=== PATIENT | male | born 1945 | race Caucasian/White ===

== ENCOUNTER 2019-03-17 20:37 | Inpatient (IN) ==
[2019-03-17] MEDS ORDERED: DILTIAZEM 25 MG/5 ML VIAL IV ONE ×2 (20:55→21:04)
[2019-03-17] MEDS ORDERED: ENOXAPARIN 60 MG/0.6 ML SYRINGE ONE (20:55)
[2019-03-17] MEDS ORDERED: ENOXAPARIN 30 MG/0.3 ML SYRINGE ONE (20:56)
[2019-03-17] MEDS ORDERED: ASPIRIN 325 MG TABLET ONE (20:56)
[2019-03-17] MEDS ORDERED: METOPROLOL TARTRATE 5 MG/5 ML VIAL IV ONE (20:56)
[2019-03-17] MEDS ORDERED: ENOXAPARIN 30 MG/0.3 ML SYRINGE IV STA (20:57)
[2019-03-17] MEDS ORDERED: ONDANSETRON 4 MG/2 ML VIAL ONE (20:57)
[2019-03-17] MEDS ORDERED: ENOXAPARIN 100 MG/ML SYRINGE SUBCUT STA (20:57)
[2019-03-17] MEDS ORDERED: MORPHINE 4 MG/1 ML VIAL ONE (20:57)
[2019-03-17] MEDS ORDERED: MORPHINE 4 MG/1 ML VIAL IV STA (20:57)
[2019-03-17] MEDS ORDERED: ASPIRIN 325 MG TABLET PO STA (20:57)
[2019-03-17] MEDS ORDERED: ONDANSETRON 4 MG/2 ML VIAL IV STA (20:57)
[2019-03-17] MEDS ORDERED: NITROGLYCERIN 2% OINT 1 INCH/GM PACK TOP STA (20:57)
[2019-03-17] MEDS ORDERED: METOPROLOL TARTRATE 5 MG/5 ML VIAL IV STA (20:57)
[2019-03-17] MEDS ORDERED: dilTIAZem Drip 125 MG/125 ML PREMIX IV ONE (21:04)
[2019-03-17] MEDS: dilTIAZem Drip 125 MG/125 ML PREMIX IV SCH (21:08)
[2019-03-17] MEDS ORDERED: DILTIAZEM 50 MG/10 ML VIAL IV STA ×2 (21:12)
[2019-03-17] MEDS ORDERED: METOPROLOL TARTRATE 25 MG TABLET ONE (21:26)
[2019-03-17] MEDS ORDERED: METOPROLOL TARTRATE 50 MG TABLET PO STA (21:27)
[2019-03-17] MEDS ORDERED: FUROSEMIDE 20 MG/2 ML VIAL IV STA (21:34)
[2019-03-17 21:35] LABS: Basophils # 0.1 10*3/uL (0.0-0.2); Basophils % 1.1 % (0.0-0.8); Eosinophils # 0.9 10*3/uL (0.0-0.87); Eosinophils % 8.1 % (0.00-10.9); Hematocrit 38.5 VOL% (42.0-52.0); Hemoglobin 11.7 GM/DL (14.0-18.0); Immature Granulocytes % 0.5 %; Immature Granulocytes Absolute 0.05 #; Lymphocytes % 28.5 % (21.2-54.2); Mean Corpuscular HGB Conc 30.4 GM/DL (32-36); Mean Corpuscular Volume 88.9 FL (87-102); Mean Platelet Volume 11.1 FL (9.6-12.0); Monocytes % 10.1 % (1.7-12.7); Neutrophils % 51.7 % (38.7-73.9); Platelet Count 326 T/CUMM (130-400); Red Blood Count 4.33 MC/CUMM (3.8-5.5); Red Cell Distribution Width 15.4 % (9.3-17.3); White Blood Count 10.6 T/CUMM (4-12)
[2019-03-17 21:43] LABS: Apearance,Urine CLEAR (Clear); Bilirubin,Urine Negative (Negative); Blood, Urine Negative (Negative); Glucose,Urine (UA) Negative (Negative); Ketones,Urine Negative (Negative); Mucus,Urine Occasional /LPF (Occasional); Nitrite,Urine Negative (Negative); Protein,Urine Negative; RBC,Urine 1 /HPF (0-4); Squamous Epithelial Cell,Urine Occasional /HPF (0-10); Urine Color Colorless (Yellow); Urine Specific Gravity 1.005 (1.001-1.035); Urine Urobilinogen < 2.0 EU/DL (0.2-1.0); WBC,Urine <1 /HPF (0-6)
[2019-03-17 21:50] LABS: PT Patient Result 10.7 SECS (9.6-12.2)
[2019-03-17 21:58] LABS: Alanine Aminotransferase 22 U/L (16-61); Albumin 4.2 G/DL (3.4-5.0); Alkaline Phosphatase 41 U/L (45-117); Aspartate Amino Transferase 15 U/L (0-37); Bilirubin,Total < 0.39 MG/DL (0.2-1.0); Blood Urea Nitrogen 21 MG/DL (7-18); Estimated Glom Filtration Rate 71 ML/MIN; Glucose 151 MG/DL (74-106); Total Protein 8.1 G/DL (6.4-8.3)
[2019-03-17] MEDS ORDERED: POTASSIUM CHLORIDE 20 MEQ TABLET PO PRN (23:44)
[2019-03-17] MEDS ORDERED: ONDANSETRON 4 MG/2 ML VIAL IV PRN (23:44)
[2019-03-17] MEDS ORDERED: MORPHINE 4 MG/1 ML VIAL IV PRN (23:44)
[2019-03-17] MEDS ORDERED: MAGNESIUM SULF RIDER 2 GM in PREMIX 1 EACH IV PRN (23:44)
[2019-03-17] MEDS ORDERED: GLUCAGON 1 MG VIAL IM PRN (23:44)
[2019-03-17] MEDS ORDERED: MAGNESIUM SULF RIDER 4 GM in PREMIX 1 EACH IV PRN (23:44)
[2019-03-17] MEDS ORDERED: DEXTROSE 50% 25 GM/50 ML VIAL IV PRN (23:44)
[2019-03-17] MEDS ORDERED: SODIUM CHLORIDE 0.9% 1,000 ML IV SCH (23:44)
[2019-03-18] MEDS: INSULIN REGULAR 100 UNIT/ML SUBCUT SCH ×5 (00:06→23:47)
[2019-03-18] MEDS ORDERED: INFLUENZA VIRUS VACCINE 0.5 ML SYRINGE IM ONE (00:18)
[2019-03-18 05:18] LABS: Risk Ratio 6.62; Thyroid Stimulating Hormone 2.6 uIU/ml (0.358-3.74); VLDL CHOLESTEROL 144.6 MG/DL
[2019-03-18] MEDS: PANTOPRAZOLE 40 MG TABLET PO SCH (08:30)
[2019-03-18] MEDS: ENOXAPARIN 80 MG/0.8 ML SYRINGE SUBCUT SCH ×2 (08:31→20:17)
[2019-03-18] MEDS: FENOFIBRATE 145 MG TABLET PO SCH (08:51)
[2019-03-18] MEDS: ASPIRIN EC 81 MG TABLET PO SCH (08:51)
[2019-03-18] MEDS: MAGNESIUM CHLORIDE 64 MG TABLET PO SCH ×2 (08:51→20:17)
[2019-03-18] MEDS: buPROPion XL 150 MG TABLET PO SCH ×2 (08:51→20:17)
[2019-03-18] MEDS: MECLIZINE 25 MG TABLET PO SCH ×3 (08:51→20:17)
[2019-03-18] MEDS ORDERED: METOPROLOL TARTRATE 25 MG TABLET PO SCH (09:00)
[2019-03-18] MEDS ORDERED: PANTOPRAZOLE 40 MG TABLET PO SCH (09:00)
[2019-03-18] MEDS ORDERED: FUROSEMIDE 40 MG/4 ML VIAL IV ONE (10:00)
[2019-03-18] MEDS ORDERED: DIAZEPAM 5 MG TABLET PO ONE (10:00)
[2019-03-18] MEDS ORDERED: diphenhydrAMINE CAP 25 MG CAPSULE PO ONE (10:00)
[2019-03-18] MEDS ORDERED: SODIUM CHLORIDE 0.45% 1,000 ML IV SCH ×2 (11:00→12:00)
[2019-03-18] MEDS: METOPROLOL TARTRATE 50 MG TABLET PO SCH ×2 (11:30→20:17)
[2019-03-18] MEDS ORDERED: HEPARIN/NACL 0.9% 2 UNITS/ML 1,000 ML IV ONE (14:27)
[2019-03-18] MEDS ORDERED: LIDOCAINE 1%/EPI INJ 20 ML VIAL ONE (14:27)
[2019-03-18] MEDS ORDERED: MIDAZOLAM 2 MG/2 ML VIAL ONE (15:01)
[2019-03-18] MEDS ORDERED: fentaNYL 100 MCG/2 ML VIAL ONE (15:02)
[2019-03-18] MEDS ORDERED: AMIODARONE 150 MG/3 ML VIAL ONE ×3 (15:19→15:26)
[2019-03-18] MEDS ORDERED: AMIODARONE INJ 450 MG in DEXTROSE 5% 241 ML IV SCH (15:43)
[2019-03-18] MEDS: ROSUVASTATIN 20 MG TABLET PO SCH (20:17)
[2019-03-18] MEDS ORDERED: SIMVASTATIN 10 MG TABLET PO SCH (21:00)
[2019-03-18] MEDS: AMIODARONE INJ 450 MG in DEXTROSE 5% 241 ML IV SCH (22:09)
[2019-03-18] MEDS: dilTIAZem Drip 125 MG/125 ML PREMIX IV SCH (22:09)
[2019-03-19] MEDS ORDERED: SODIUM CHLORIDE 0.45% 1,000 ML IV SCH (02:00)
[2019-03-19 03:26] LABS: Calcium 9.4 MG/DL (8.5-10.1); Osmolality,Calculated 288.1 MOS/KG (273-304)
[2019-03-19 03:41] LABS: Basophils # 0.1 10*3/uL (0.0-0.2); Basophils % 0.8 % (0.0-0.8); Eosinophils # 0.6 10*3/uL (0.0-0.87); Eosinophils % 5.7 % (0.00-10.9); Immature Granulocytes % 0.5 %; Immature Granulocytes Absolute 0.05 #; Lymphocytes # 2.4 10*3/uL (1.4-4.0); Mean Corpuscular HGB Conc 30.5 GM/DL (32-36); Mean Corpuscular Volume 87.9 FL (87-102); Mean Platelet Volume 11.2 FL (9.6-12.0); Monocytes % 10.2 % (1.7-12.7); Neutrophils % 60.8 % (38.7-73.9); Platelet Count 326 T/CUMM (130-400); Red Blood Count 4.47 MC/CUMM (3.8-5.5); Red Cell Distribution Width 15.3 % (9.3-17.3); White Blood Count 10.9 T/CUMM (4-12)
[2019-03-19 03:46] LABS: Hematocrit 39.3 VOL% (42.0-52.0)
[2019-03-19] MEDS: INSULIN REGULAR 100 UNIT/ML SUBCUT SCH ×4 (05:36→20:29)
[2019-03-19] MEDS: MAGNESIUM CHLORIDE 64 MG TABLET PO SCH ×2 (08:23→20:29)
[2019-03-19] MEDS: ASPIRIN EC 81 MG TABLET PO SCH (08:23)
[2019-03-19] MEDS: ENOXAPARIN 80 MG/0.8 ML SYRINGE SUBCUT SCH ×2 (08:24→20:29)
[2019-03-19] MEDS: METOPROLOL TARTRATE 50 MG TABLET PO SCH (08:24)
[2019-03-19] MEDS: PANTOPRAZOLE 40 MG TABLET PO SCH (08:24)
[2019-03-19] MEDS: MECLIZINE 25 MG TABLET PO SCH ×3 (08:24→20:29)
[2019-03-19] MEDS: buPROPion XL 150 MG TABLET PO SCH ×2 (08:24→20:29)
[2019-03-19] MEDS: FENOFIBRATE 145 MG TABLET PO SCH (08:24)
[2019-03-19] MEDS ORDERED: AMIODARONE 200 MG TABLET PO SCH (09:00)
[2019-03-19] MEDS: METOPROLOL TARTRATE 100 MG TABLET PO SCH ×2 (09:33→20:29)
[2019-03-19] MEDS: AMIODARONE INJ 450 MG in DEXTROSE 5% 241 ML IV SCH (16:05)
[2019-03-19] MEDS: ROSUVASTATIN 20 MG TABLET PO SCH (20:29)
[2019-03-20 05:22] LABS: Basophils # 0.1 10*3/uL (0.0-0.2); Basophils % 0.9 % (0.0-0.8); Eosinophils # 0.7 10*3/uL (0.0-0.87); Eosinophils % 6.9 % (0.00-10.9); Hematocrit 38.6 VOL% (42.0-52.0); Hemoglobin 11.7 GM/DL (14.0-18.0); Immature Granulocytes % 0.5 %; Immature Granulocytes Absolute 0.05 #; Lymphocytes # 2.2 10*3/uL (1.4-4.0); Mean Corpuscular HGB Conc 30.3 GM/DL (32-36); Mean Corpuscular Volume 86.7 FL (87-102); Mean Platelet Volume 11.2 FL (9.6-12.0); Monocytes % 10.9 % (1.7-12.7); Neutrophils % 58.8 % (38.7-73.9); Platelet Count 300 T/CUMM (130-400); Red Blood Count 4.45 MC/CUMM (3.8-5.5); Red Cell Distribution Width 15.3 % (9.3-17.3); White Blood Count 9.9 T/CUMM (4-12)
[2019-03-20 05:53] LABS: Calcium 9.1 MG/DL (8.5-10.1); Osmolality,Calculated 286.4 MOS/KG (273-304)
[2019-03-20] MEDS: SODIUM CHLORIDE 0.9% 1,000 ML IV SCH (07:05)
[2019-03-20] MEDS ORDERED: LIDOCAINE 2% 5 ML VIAL ONE (07:25)
[2019-03-20] MEDS ORDERED: PROPOFOL 200 MG/20 ML VIAL IV ONE (07:25)
[2019-03-20] MEDS: METOPROLOL TARTRATE 100 MG TABLET PO SCH ×2 (08:38→21:04)
[2019-03-20] MEDS: buPROPion XL 150 MG TABLET PO SCH ×2 (08:38→21:04)
[2019-03-20] MEDS: PANTOPRAZOLE 40 MG TABLET PO SCH (08:38)
[2019-03-20] MEDS: FENOFIBRATE 145 MG TABLET PO SCH (08:38)
[2019-03-20] MEDS: ENOXAPARIN 80 MG/0.8 ML SYRINGE SUBCUT SCH ×2 (08:38→21:04)
[2019-03-20] MEDS: ASPIRIN EC 81 MG TABLET PO SCH (08:38)
[2019-03-20] MEDS: MAGNESIUM CHLORIDE 64 MG TABLET PO SCH ×2 (08:38→21:03)
[2019-03-20] MEDS: MECLIZINE 25 MG TABLET PO SCH ×3 (08:38→21:04)
[2019-03-20] MEDS: AMIODARONE 200 MG TABLET PO SCH ×2 (09:10→21:04)
[2019-03-20] MEDS: INSULIN REGULAR 100 UNIT/ML SUBCUT SCH ×4 (09:11→21:03)
[2019-03-20] MEDS: LOSARTAN 25 MG TABLET PO SCH (10:23)
[2019-03-20] MEDS: ROSUVASTATIN 20 MG TABLET PO SCH (21:04)
[2019-03-20] MEDS: ASCORBIC ACID 500 MG TABLET PO SCH (21:04)
[2019-03-21 04:30] LABS: Basophils # 0.1 10*3/uL (0.0-0.2); Basophils % 0.9 % (0.0-0.8); Eosinophils # 0.7 10*3/uL (0.0-0.87); Eosinophils % 8.3 % (0.00-10.9); Hematocrit 33.1 VOL% (42.0-52.0); Immature Granulocytes % 0.5 %; Immature Granulocytes Absolute 0.04 #; Lymphocytes # 2.3 10*3/uL (1.4-4.0); Lymphocytes % 25.9 % (21.2-54.2); Mean Corpuscular HGB Conc 30.2 GM/DL (32-36); Mean Corpuscular Volume 87.6 FL (87-102); Mean Platelet Volume 11.3 FL (9.6-12.0); Monocytes % 12.4 % (1.7-12.7); Platelet Count 283 T/CUMM (130-400); Red Blood Count 3.78 MC/CUMM (3.8-5.5); Red Cell Distribution Width 15.3 % (9.3-17.3); White Blood Count 8.7 T/CUMM (4-12)
[2019-03-21 04:56] LABS: Calcium 8.7 MG/DL (8.5-10.1); Osmolality,Calculated 291.1 MOS/KG (273-304)
[2019-03-21] MEDS: SODIUM CHLORIDE 0.9% 1,000 ML IV SCH (09:43)
[2019-03-21] MEDS: MAGNESIUM CHLORIDE 64 MG TABLET PO SCH ×2 (09:44→21:16)
[2019-03-21] MEDS: buPROPion XL 150 MG TABLET PO SCH ×2 (09:44→21:15)
[2019-03-21] MEDS: ASPIRIN EC 81 MG TABLET PO SCH (09:44)
[2019-03-21] MEDS: PANTOPRAZOLE 40 MG TABLET PO SCH (09:44)
[2019-03-21] MEDS: FENOFIBRATE 145 MG TABLET PO SCH (09:44)
[2019-03-21] MEDS: AMIODARONE 200 MG TABLET PO SCH ×2 (09:44→21:15)
[2019-03-21] MEDS: LOSARTAN 25 MG TABLET PO SCH (09:44)
[2019-03-21] MEDS: ENOXAPARIN 80 MG/0.8 ML SYRINGE SUBCUT SCH ×2 (09:45→21:16)
[2019-03-21] MEDS: ASCORBIC ACID 500 MG TABLET PO SCH ×2 (09:45→21:15)
[2019-03-21] MEDS: METOPROLOL TARTRATE 100 MG TABLET PO SCH ×2 (09:45→21:15)
[2019-03-21] MEDS: MECLIZINE 25 MG TABLET PO SCH ×3 (09:45→21:16)
[2019-03-21] MEDS: INSULIN REGULAR 100 UNIT/ML SUBCUT SCH ×4 (09:48→21:16)
[2019-03-21] MEDS: ROSUVASTATIN 20 MG TABLET PO SCH (21:15)
[2019-03-22 04:37] LABS: Basophils # 0.1 10*3/uL (0.0-0.2); Basophils % 0.8 % (0.0-0.8); Eosinophils # 0.8 10*3/uL (0.0-0.87); Eosinophils % 9.3 % (0.00-10.9); Hemoglobin 9.7 GM/DL (14.0-18.0); Immature Granulocytes % 0.5 %; Immature Granulocytes Absolute 0.04 #; Lymphocytes # 2.1 10*3/uL (1.4-4.0); Lymphocytes % 25.6 % (21.2-54.2); Mean Corpuscular HGB Conc 30.3 GM/DL (32-36); Mean Corpuscular Volume 88.9 FL (87-102); Mean Platelet Volume 11.3 FL (9.6-12.0); Monocytes % 11.7 % (1.7-12.7); Neutrophils % 52.1 % (38.7-73.9); Platelet Count 286 T/CUMM (130-400); Red Cell Distribution Width 15.6 % (9.3-17.3); White Blood Count 8.4 T/CUMM (4-12)
[2019-03-22 04:52] LABS: Calcium 9.4 MG/DL (8.5-10.1); Osmolality,Calculated 297.6 MOS/KG (273-304)
[2019-03-22] MEDS: SODIUM CHLORIDE 0.9% 1,000 ML IV SCH (08:06)
[2019-03-22] MEDS: INSULIN REGULAR 100 UNIT/ML SUBCUT SCH ×4 (08:49→21:34)
[2019-03-22] MEDS: ASPIRIN EC 81 MG TABLET PO SCH (09:21)
[2019-03-22] MEDS: PANTOPRAZOLE 40 MG TABLET PO SCH (09:21)
[2019-03-22] MEDS: AMIODARONE 200 MG TABLET PO SCH ×2 (09:21→21:37)
[2019-03-22] MEDS: FENOFIBRATE 145 MG TABLET PO SCH (09:21)
[2019-03-22] MEDS: MECLIZINE 25 MG TABLET PO SCH ×3 (09:21→21:37)
[2019-03-22] MEDS: MAGNESIUM CHLORIDE 64 MG TABLET PO SCH ×2 (09:21→21:36)
[2019-03-22] MEDS: LOSARTAN 25 MG TABLET PO SCH (09:21)
[2019-03-22] MEDS: buPROPion XL 150 MG TABLET PO SCH ×2 (09:21→21:36)
[2019-03-22] MEDS: ASCORBIC ACID 500 MG TABLET PO SCH ×2 (09:21→21:36)
[2019-03-22] MEDS: METOPROLOL TARTRATE 100 MG TABLET PO SCH ×2 (09:22→21:36)
[2019-03-22] MEDS: ENOXAPARIN 80 MG/0.8 ML SYRINGE SUBCUT SCH ×2 (09:22→21:35)
[2019-03-22] MEDS: cloNIDine 0.1 MG TABLET PO SCH ×2 (14:15→21:37)
[2019-03-22] MEDS: INSULIN GLARGINE SUBCUT SCH (14:52)
[2019-03-22] MEDS: LIXISENATIDE SUBCUT SCH (14:52)
[2019-03-22] MEDS: ROSUVASTATIN 20 MG TABLET PO SCH (21:36)
[2019-03-23 04:58] LABS: Basophils # 0.1 10*3/uL (0.0-0.2); Basophils % 1.2 % (0.0-0.8); Eosinophils # 0.7 10*3/uL (0.0-0.87); Eosinophils % 10.6 % (0.00-10.9); Hematocrit 30.8 VOL% (42.0-52.0); Hemoglobin 9.1 GM/DL (14.0-18.0); Immature Granulocytes % 0.4 %; Immature Granulocytes Absolute 0.03 #; Lymphocytes # 2.2 10*3/uL (1.4-4.0); Lymphocytes % 31.8 % (21.2-54.2); Mean Corpuscular HGB Conc 29.5 GM/DL (32-36); Mean Corpuscular Volume 89.5 FL (87-102); Mean Platelet Volume 11.4 FL (9.6-12.0); Monocytes % 12.8 % (1.7-12.7); Neutrophils % 43.2 % (38.7-73.9); Platelet Count 294 T/CUMM (130-400); Red Blood Count 3.44 MC/CUMM (3.8-5.5); Red Cell Distribution Width 15.7 % (9.3-17.3); White Blood Count 6.9 T/CUMM (4-12)
[2019-03-23 05:22] LABS: Calcium 9.5 MG/DL (8.5-10.1); Osmolality,Calculated 299.4 MOS/KG (273-304)
[2019-03-23] MEDS: cloNIDine 0.1 MG TABLET PO SCH ×3 (05:58→22:21)
[2019-03-23] MEDS ORDERED: DEXTROSE 50% 25 GM/50 ML VIAL IV PRN (07:55)
[2019-03-23] MEDS ORDERED: GLUCAGON 1 MG VIAL IM PRN (07:55)
[2019-03-23] MEDS ORDERED: MAGNESIUM HYDROXIDE SUSP 30 ML UDCUP PO PRN (08:19)
[2019-03-23] MEDS ORDERED: BISACODYL 10 MG SUPP RECTAL PRN (08:20)
[2019-03-23] MEDS: METOPROLOL TARTRATE 100 MG TABLET PO SCH ×2 (08:50→22:21)
[2019-03-23] MEDS: ASCORBIC ACID 500 MG TABLET PO SCH ×2 (08:50→22:21)
[2019-03-23] MEDS: buPROPion XL 150 MG TABLET PO SCH ×2 (08:50→22:21)
[2019-03-23] MEDS: ASPIRIN EC 81 MG TABLET PO SCH (08:50)
[2019-03-23] MEDS: AMIODARONE 200 MG TABLET PO SCH ×2 (08:50→22:22)
[2019-03-23] MEDS: ENOXAPARIN 80 MG/0.8 ML SYRINGE SUBCUT SCH (08:51)
[2019-03-23] MEDS: PANTOPRAZOLE 40 MG TABLET PO SCH (08:51)
[2019-03-23] MEDS: MECLIZINE 25 MG TABLET PO SCH ×3 (08:51→22:21)
[2019-03-23] MEDS: LOSARTAN 25 MG TABLET PO SCH (08:51)
[2019-03-23] MEDS: FENOFIBRATE 145 MG TABLET PO SCH (08:51)
[2019-03-23] MEDS: SODIUM CHLORIDE 0.9% 1,000 ML IV SCH (08:53)
[2019-03-23] MEDS: INSULIN REGULAR 100 UNIT/ML SUBCUT SCH ×4 (08:54→22:22)
[2019-03-23] MEDS: LIXISENATIDE SUBCUT SCH ×2 (09:02→10:45)
[2019-03-23] MEDS: INSULIN GLARGINE SUBCUT SCH ×2 (09:02→10:45)
[2019-03-23] MEDS: MAGNESIUM CHLORIDE 64 MG TABLET PO SCH ×2 (09:02→22:21)
[2019-03-23] MEDS: CHLORHEXIDINE 0.12% ORAL RINSE 60 ML BOTTLE SWISH/SPIT SCH ×2 (09:03→22:23)
[2019-03-23] MEDS: CHLORHEXIDINE 4% SOLN 118 ML BOTTLE TOP SCH ×3 (09:04→21:00)
[2019-03-23] MEDS: ROSUVASTATIN 20 MG TABLET PO SCH (22:21)
[2019-03-24] MEDS ORDERED: VANCOMYCIN 500 MG VIAL ONE (04:22)
[2019-03-24] MEDS ORDERED: VANCOMYCIN 1,000 MG VIAL ONE (04:22)
[2019-03-24] MEDS ORDERED: PAPAVERINE 60 MG/2 ML VIAL ONE (04:22)
[2019-03-24] MEDS ORDERED: DIAZEPAM 5 MG TABLET PO ONE (05:00)
[2019-03-24] MEDS ORDERED: AMINOCAPROIC ACID 5,000 MG/20 ML VIAL ONE (06:00)
[2019-03-24] MEDS ORDERED: MIDAZOLAM 10 MG/2 ML VIAL ONE (06:03)
[2019-03-24] MEDS ORDERED: SUFentanil 250 MCG/5 ML AMP ONE (06:03)
[2019-03-24] MEDS: cloNIDine 0.1 MG TABLET PO SCH ×3 (06:09→22:25)
[2019-03-24] MEDS ORDERED: CEFUROXIME INJ 1,500 MG in SODIUM CHLORIDE 0.9% 100 ML IV ONE (07:00)
[2019-03-24 07:42] LABS: ABG Base Excess -2.9 MMOL/L (-2.5-2.5); ABG Oxygen Saturation 99.9 % (95-100); ABG PCO2 38.9 MM HG (35-48); ABG PH 7.364 (7.35-7.45); ABG TCO2 20.5 MMOL/L (23-27); Glucose Heart Surgery 159 MG/DL (74-106); Hematocrit Heart Surgery 27.8 PERCENT (42-52); Ionized Calcium Arterial 1.23 MMOL/L (1.21-1.46); PCO2 Patient Temp Arterial 38.9 MMHG; PH Patient Temp Arterial 7.364; Patient Temperature 37 CELCIUS; Potassium Heart/CVR 4.4 MMOL/L (3.5-5.1); Sodium Heart/CVR 140 MMOL/L (135-145)
[2019-03-24 08:30] LABS: Apearance,Urine CLEAR (Clear); Bilirubin,Urine Negative (Negative); Blood, Urine Negative (Negative); Glucose,Urine (UA) Negative (Negative); Ketones,Urine Negative (Negative); Mucus,Urine Occasional /LPF (Occasional); Nitrite,Urine Negative (Negative); Protein,Urine 30 MG/DL; RBC,Urine 2 /HPF (0-4); Urine Color Yellow (Yellow); Urine Specific Gravity 1.024 (1.001-1.035); Urine Urobilinogen < 2.0 EU/DL (0.2-1.0); WBC,Urine 2 /HPF (0-6)
[2019-03-24] MEDS ORDERED: CALCIUM CHLORIDE 1,000 MG/10 ML VIAL IV ONE (09:12)
[2019-03-24] MEDS ORDERED: PHENYLEPHRINE 1 MG/10 ML SYRINGE IV ONE (09:13)
[2019-03-24] MEDS ORDERED: PHENYLEPHRINE DRIP 20 MG/250 ML PREMIX IV ONE (09:13)
[2019-03-24] MEDS ORDERED: VECURONIUM 10 MG VIAL IV ONE (09:13)
[2019-03-24] MEDS ORDERED: HEPARIN/NACL 0.9% 2 UNITS/ML 500 ML IV ONE (09:13)
[2019-03-24 09:20] LABS: Hematocrit Heart Surgery 19.1 PERCENT (42-52); Hemoglobin Heart Surgery 6.1 G/DL (14.0-18.0); PCO2 Patient Temp Venous 35.9 MM HG; PH Patient Temp Venous 7.399; PO2 Patient Temp Venous 37.6 MM HG; Potassium Heart/CVR 5.1 MMOL/L (3.5-5.1); VBG Base Excess -2.2 MEQ/L (0-4); VBG HCO3 22.4 MEQ/L (24-28); VBG Oxygen Saturation 77.4 %; VBG PCO2 39.5 MMHG (41-51); VBG PH 7.37; VBG PO2 43.2 MMHG (17-40)
[2019-03-24 09:50] LABS: Hematocrit Heart Surgery 21.7 PERCENT (42-52); Hemoglobin Heart Surgery 6.9 G/DL (14.0-18.0); PCO2 Patient Temp Venous 31.3 MM HG; PH Patient Temp Venous 7.49; PO2 Patient Temp Venous 37.2 MM HG; Potassium Heart/CVR 5.2 MMOL/L (3.5-5.1); VBG Base Excess 0.9 MEQ/L (0-4); VBG HCO3 25.1 MEQ/L (24-28); VBG Oxygen Saturation 84.8 %; VBG PCO2 36.2 MMHG (41-51); VBG PH 7.445; VBG PO2 45.7 MMHG (17-40)
[2019-03-24 10:17] LABS: Hematocrit Heart Surgery 22.4 PERCENT (42-52); Hemoglobin Heart Surgery 7.2 G/DL (14.0-18.0); PCO2 Patient Temp Venous 35.6 MM HG; PH Patient Temp Venous 7.438; PO2 Patient Temp Venous 36.3 MM HG; Potassium Heart/CVR 5.3 MMOL/L (3.5-5.1); VBG Base Excess 0.1 MEQ/L (0-4); VBG HCO3 24.2 MEQ/L (24-28); VBG Oxygen Saturation 71.4 %; VBG PCO2 35.6 MMHG (41-51); VBG PH 7.438; VBG PO2 36.3 MMHG (17-40)
[2019-03-24 11:05] LABS: ABG Base Excess -1.8 MMOL/L (-2.5-2.5); ABG HCO3 22.9 MMOL/L (20-26); ABG Oxygen Saturation 99.9 % (95-100); ABG PCO2 36.2 MM HG (35-48); ABG PH 7.403 (7.35-7.45); ABG TCO2 21.2 MMOL/L (23-27); Glucose Heart Surgery 270 MG/DL (74-106); Hematocrit Heart Surgery 23.7 PERCENT (42-52); Hemoglobin Heart Surgery 7.6 G/DL (14.0-18.0); Ionized Calcium Arterial 1.24 MMOL/L (1.21-1.46); PCO2 Patient Temp Arterial 36.2 MMHG; PH Patient Temp Arterial 7.403; Patient Temperature 37 CELCIUS; Potassium Heart/CVR 4.5 MMOL/L (3.5-5.1); Sodium Heart/CVR 135 MMOL/L (135-145)
[2019-03-24] MEDS ORDERED: LIDOCAINE 2% 5 ML VIAL ONE ×2 (11:06→12:54)
[2019-03-24] MEDS ORDERED: MANNITOL 100 GM/500 ML BAG IV ONE (11:06)
[2019-03-24] MEDS ORDERED: MAGNESIUM SULFATE 5 GM/10 ML VIAL IV ONE (11:07)
[2019-03-24] MEDS ORDERED: SODIUM BICARBONATE 50 MEQ/50 ML VIAL IV ONE (11:07)
[2019-03-24] MEDS ORDERED: PROTAMINE SULFATE 250 MG/25 ML VIAL IV ONE (11:07)
[2019-03-24] MEDS ORDERED: HEPARIN 10,000 UNIT/10 ML VIAL ONE (11:07)
[2019-03-24] MEDS ORDERED: ALBUMIN 25% 25 GM/100 ML VIAL IV ONE (11:07)
[2019-03-24] MEDS ORDERED: DEXTROSE 5% KCL 20 MEQ 20 MEQ/1,000 ML BAG IV ONE (11:07)
[2019-03-24] MEDS ORDERED: FUROSEMIDE 20 MG/2 ML VIAL ONE (11:07)
[2019-03-24] MEDS ORDERED: PHENYLEPHRINE DRIP 40 MG/250 ML PREMIX IV PRN (12:12)
[2019-03-24] MEDS ORDERED: INSULIN REGULAR 100 UNIT/ML IV PRN (12:12)
[2019-03-24] MEDS ORDERED: INSULIN REGULAR DRIP 100 ML IV SCH (12:12)
[2019-03-24] MEDS ORDERED: CALCIUM CHLORIDE 1,000 MG/10 ML SYRINGE IV PRN (12:12)
[2019-03-24] MEDS ORDERED: ALBUMIN 5% 12.5 GM in PREMIX 1 EACH IV PRN (12:12)
[2019-03-24] MEDS ORDERED: MORPHINE 4 MG/1 ML VIAL IV PRN (12:12)
[2019-03-24] MEDS ORDERED: LACTATED RINGERS 250 ML IV PRN (12:12)
[2019-03-24] MEDS ORDERED: DEXTROSE 50% 25 GM/50 ML VIAL IV PRN ×2 (12:12)
[2019-03-24] MEDS ORDERED: MAGNESIUM SULF RIDER 2 GM in PREMIX 1 EACH IV PRN (12:12)
[2019-03-24] MEDS ORDERED: VECURONIUM 10 MG VIAL IV PRN ×2 (12:12)
[2019-03-24] MEDS ORDERED: SODIUM CHLORIDE 0.45% 1,000 ML IV SCH ×2 (12:12)
[2019-03-24] MEDS ORDERED: NITROPRUSSIDE 100 MG in DEXTROSE 5% 250 ML IV PRN (12:12)
[2019-03-24] MEDS ORDERED: ACETAMINOPHEN 650 MG SUPP RECTAL PRN (12:12)
[2019-03-24] MEDS ORDERED: INSULIN REGULAR 100 UNIT/ML IV ONE (12:12)
[2019-03-24] MEDS ORDERED: MORPHINE 10 MG/1 ML VIAL IV PRN (12:12)
[2019-03-24] MEDS ORDERED: MAGNESIUM SULF RIDER 4 GM in PREMIX 1 EACH IV PRN (12:12)
[2019-03-24] MEDS ORDERED: MIDAZOLAM 2 MG/2 ML VIAL IV PRN (12:12)
[2019-03-24] MEDS ORDERED: ONDANSETRON 4 MG/2 ML VIAL IV PRN (12:12)
[2019-03-24] MEDS ORDERED: PROTAMINE SULFATE 50 MG/5 ML VIAL IV ONE (12:15)
[2019-03-24 12:22] LABS: ABG Base Excess -1.3 MMOL/L (-2.5-2.5); ABG HCO3 23.3 MMOL/L (20-26); ABG Oxygen Saturation 96.2 % (95-100); ABG PCO2 41.5 MM HG (35-48); ABG PH 7.368 (7.35-7.45); ABG PO2 84.5 MM HG (80-95); ABG TCO2 22.2 MMOL/L (23-27); Glucose Heart Surgery 239 MG/DL (74-106); Hematocrit Heart Surgery 27.3 PERCENT (42-52); Hemoglobin Heart Surgery 8.8 G/DL (14.0-18.0); Potassium Heart/CVR 3.7 MMOL/L (3.5-5.1)
[2019-03-24 12:25] LABS: Basophils # 0.1 10*3/uL (0.0-0.2); Basophils % 0.4 % (0.0-0.8); Eosinophils # 0.3 10*3/uL (0.0-0.87); Eosinophils % 2.3 % (0.00-10.9); Hematocrit 27.2 VOL% (42.0-52.0); Hemoglobin 8.4 GM/DL (14.0-18.0); Immature Granulocytes % 0.9 %; Immature Granulocytes Absolute 0.11 #; Lymphocytes # 1.2 10*3/uL (1.4-4.0); Lymphocytes % 9.9 % (21.2-54.2); Mean Corpuscular HGB Conc 30.9 GM/DL (32-36); Monocytes % 5.9 % (1.7-12.7); Neutrophils % 80.6 % (38.7-73.9); Platelet Count 218 T/CUMM (130-400); Red Blood Count 3.09 MC/CUMM (3.8-5.5); Red Cell Distribution Width 15.6 % (9.3-17.3)
[2019-03-24] MEDS: SODIUM CHLORIDE 0.9% 1,000 ML IV SCH (12:28)
[2019-03-24] MEDS: INSULIN REGULAR 100 UNIT/ML SUBCUT SCH (12:28)
[2019-03-24] MEDS: MECLIZINE 25 MG TABLET PO SCH (12:28)
[2019-03-24] MEDS: AMIODARONE 200 MG TABLET PO SCH (12:29)
[2019-03-24] MEDS: ASPIRIN EC 81 MG TABLET PO SCH (12:29)
[2019-03-24] MEDS: LIXISENATIDE SUBCUT SCH (12:30)
[2019-03-24] MEDS: LOSARTAN 25 MG TABLET PO SCH (12:30)
[2019-03-24] MEDS: INSULIN GLARGINE SUBCUT SCH (12:30)
[2019-03-24] MEDS: MAGNESIUM CHLORIDE 64 MG TABLET PO SCH (12:30)
[2019-03-24] MEDS: PANTOPRAZOLE 40 MG TABLET PO SCH (12:30)
[2019-03-24] MEDS: CHLORHEXIDINE 0.12% ORAL RINSE 60 ML BOTTLE SWISH/SPIT SCH ×2 (12:30→21:16)
[2019-03-24] MEDS: METOPROLOL TARTRATE 100 MG TABLET PO SCH (12:30)
[2019-03-24] MEDS: buPROPion XL 150 MG TABLET PO SCH (12:31)
[2019-03-24] MEDS: ASCORBIC ACID 500 MG TABLET PO SCH (12:31)
[2019-03-24] MEDS: FENOFIBRATE 145 MG TABLET PO SCH (12:31)
[2019-03-24 12:34] LABS: INR 1.2; PT Patient Result 12.5 SECS (9.6-12.2); Partial Thromboplastin Time 26.4 SECS (20.8-36.0)
[2019-03-24] MEDS ORDERED: NITROPRUSSIDE 50 MG/2 ML VIAL ONE (12:39)
[2019-03-24 12:49] LABS: CKMB % 5.5 %
[2019-03-24] MEDS ORDERED: LACTATED RINGERS 1,000 ML IV ONE (12:54)
[2019-03-24] MEDS ORDERED: NITROGLYCERIN DRIP 50 MG/250 ML BOTTLE IV ONE (12:54)
[2019-03-24] MEDS ORDERED: ePHEDrine 50 MG/ML AMP ONE (12:54)
[2019-03-24] MEDS ORDERED: SODIUM CHLORIDE 0.9% 100 ML IV ONE (12:54)
[2019-03-24] MEDS ORDERED: ETOMIDATE 40 MG/20 ML VIAL IV ONE (12:54)
[2019-03-24] MEDS ORDERED: SODIUM CHLORIDE 0.9% 250 ML IV ONE (12:54)
[2019-03-24] MEDS ORDERED: SODIUM CHLORIDE 0.9% 1,000 ML IV ONE (12:54)
[2019-03-24] MEDS ORDERED: SEVOFLURANE 1 UNIT/15 MINUTE INH ONE (12:54)
[2019-03-24 12:55] LABS: Albumin 3.4 G/DL (3.4-5.0); Bilirubin,Total 0.5 MG/DL (0.2-1.0); Calcium 8.4 MG/DL (8.5-10.1); Total Protein 6.2 G/DL (6.4-8.3)
[2019-03-24] MEDS: POTASSIUM CHLORIDE RIDER 20 MEQ in PREMIX 1 EACH IV PRN ×4 (13:29→23:18)
[2019-03-24 13:31] LABS: Troponin I 4.76 NG/ML (0.00-0.045)
[2019-03-24 14:12] LABS: ABG Base Excess -1.1 MMOL/L (-2.5-2.5); ABG HCO3 23.1 MMOL/L (20-26); ABG Oxygen Saturation 97.4 % (95-100); ABG PCO2 36.7 MM HG (35-48); ABG PH 7.416 (7.35-7.45); ABG PO2 102.8 MM HG (80-95); ABG TCO2 24.2 MMOL/L (23-27); Glucose Heart Surgery 211 MG/DL (74-106); Hemoglobin Heart Surgery 11.2 G/DL (14.0-18.0); Potassium Heart/CVR 3.9 MMOL/L (3.5-5.1)
[2019-03-24 15:20] LABS: ABG HCO3 23.6 MMOL/L (20-26); ABG PH 7.408 (7.35-7.45); Glucose Heart Surgery 197 MG/DL (74-106); Hematocrit Heart Surgery 33.5 PERCENT (42-52); Hemoglobin Heart Surgery 10.8 G/DL (14.0-18.0); Potassium Heart/CVR 3.8 MMOL/L (3.5-5.1)
[2019-03-24] MEDS: MIDAZOLAM 10 MG/2 ML VIAL IV PRN ×2 (15:36→17:34)
[2019-03-24] MEDS ORDERED: LACTATED RINGERS 1,000 ML IV PRN (16:50)
[2019-03-24 17:11] LABS: ABG Base Excess -1.1 MMOL/L (-2.5-2.5); ABG HCO3 23.5 MMOL/L (20-26); ABG Oxygen Saturation 98.4 % (95-100); ABG PCO2 36.7 MM HG (35-48); ABG PH 7.409 (7.35-7.45); ABG TCO2 20.9 MMOL/L (23-27); Glucose Heart Surgery 178 MG/DL (74-106); Hematocrit Heart Surgery 32.7 PERCENT (42-52); Hemoglobin Heart Surgery 10.6 G/DL (14.0-18.0)
[2019-03-24 18:10] LABS: ABG Base Excess -0.7 MMOL/L (-2.5-2.5); ABG HCO3 23.8 MMOL/L (20-26); ABG Oxygen Saturation 95.9 % (95-100); ABG PCO2 36.9 MM HG (35-48); ABG PH 7.413 (7.35-7.45); ABG PO2 77.6 MM HG (80-95); ABG TCO2 21.3 MMOL/L (23-27); Glucose Heart Surgery 166 MG/DL (74-106); Hematocrit Heart Surgery 31.9 PERCENT (42-52); Hemoglobin Heart Surgery 10.3 G/DL (14.0-18.0); Potassium Heart/CVR 3.8 MMOL/L (3.5-5.1)
[2019-03-24] MEDS ORDERED: PROPOFOL 1,000 MG/100 ML BOTTLE IV PRN (18:18)
[2019-03-24 19:15] LABS: ABG Base Excess -0.5 MMOL/L (-2.5-2.5); ABG Oxygen Saturation 97.8 % (95-100); ABG PCO2 34.9 MM HG (35-48); ABG PH 7.433 (7.35-7.45); ABG PO2 93.3 MM HG (80-95); Glucose Heart Surgery 161 MG/DL (74-106); Hematocrit Heart Surgery 32.4 PERCENT (42-52); Hemoglobin Heart Surgery 10.5 G/DL (14.0-18.0); Potassium Heart/CVR 3.8 MMOL/L (3.5-5.1)
[2019-03-24] MEDS: CEFUROXIME INJ 1,500 MG in SYRINGE 1 EACH IV SCH (19:57)
[2019-03-24] MEDS: POTASSIUM CHLORIDE RIDER 10 MEQ in PREMIX 1 EACH IV PRN (20:26)
[2019-03-24 20:38] LABS: ABG Base Excess -1.5 MMOL/L (-2.5-2.5); ABG HCO3 23.1 MMOL/L (20-26); ABG Oxygen Saturation 96.8 % (95-100); ABG PCO2 34.4 MM HG (35-48); ABG PH 7.422 (7.35-7.45); ABG PO2 85.8 MM HG (80-95); ABG TCO2 20.3 MMOL/L (23-27); Glucose Heart Surgery 148 MG/DL (74-106); Hematocrit Heart Surgery 31.4 PERCENT (42-52); Hemoglobin Heart Surgery 10.1 G/DL (14.0-18.0); Potassium Heart/CVR 4.3 MMOL/L (3.5-5.1)
[2019-03-24] MEDS ORDERED: FUROSEMIDE 40 MG/4 ML VIAL IV ONE (23:06)
[2019-03-24 23:20] LABS: CKMB % 3.3 %
[2019-03-24 23:24] LABS: Troponin I 2.85 NG/ML (0.00-0.045)
[2019-03-25 00:39] LABS: ABG Base Excess -0.2 MMOL/L (-2.5-2.5); ABG HCO3 23.1 MMOL/L (20-26); ABG Oxygen Saturation 96.3 % (95-100); ABG PH 7.463 (7.35-7.45); ABG PO2 87.4 MM HG (80-95); ABG TCO2 24.1 MMOL/L (23-27); Glucose Heart Surgery 112 MG/DL (74-106); Hemoglobin Heart Surgery 10.7 G/DL (14.0-18.0); Potassium Heart/CVR 4.1 MMOL/L (3.5-5.1)
[2019-03-25 01:32] LABS: ABG Base Excess -0.4 MMOL/L (-2.5-2.5); ABG HCO3 24.1 MMOL/L (20-26); ABG PCO2 34.1 MM HG (35-48); ABG PH 7.442 (7.35-7.45); ABG PO2 95.7 MM HG (80-95); ABG TCO2 21.1 MMOL/L (23-27); Glucose Heart Surgery 117 MG/DL (74-106); Hematocrit Heart Surgery 30.7 PERCENT (42-52); Hemoglobin Heart Surgery 9.9 G/DL (14.0-18.0); Potassium Heart/CVR 3.9 MMOL/L (3.5-5.1)
[2019-03-25] MEDS: POTASSIUM CHLORIDE RIDER 20 MEQ in PREMIX 1 EACH IV PRN (01:49)
[2019-03-25] MEDS: POTASSIUM CHLORIDE RIDER 10 MEQ in PREMIX 1 EACH IV PRN (02:27)
[2019-03-25 03:46] LABS: ABG Base Excess -0.5 MMOL/L (-2.5-2.5); ABG Oxygen Saturation 97.9 % (95-100); ABG PCO2 35.4 MM HG (35-48); ABG PH 7.428 (7.35-7.45); ABG PO2 97.5 MM HG (80-95); ABG TCO2 21.3 MMOL/L (23-27); Glucose Heart Surgery 122 MG/DL (74-106); Hematocrit Heart Surgery 30.7 PERCENT (42-52); Hemoglobin Heart Surgery 9.9 G/DL (14.0-18.0); Potassium Heart/CVR 4.4 MMOL/L (3.5-5.1)
[2019-03-25 03:48] LABS: Basophils % 0.1 % (0.0-0.8); Hematocrit 30.7 VOL% (42.0-52.0); Hemoglobin 9.6 GM/DL (14.0-18.0); Immature Granulocytes % 0.4 %; Immature Granulocytes Absolute 0.07 #; Lymphocytes % 6.5 % (21.2-54.2); Mean Corpuscular HGB Conc 31.3 GM/DL (32-36); Mean Corpuscular Volume 88.7 FL (87-102); Mean Platelet Volume 11.5 FL (9.6-12.0); Monocytes % 6.4 % (1.7-12.7); Neutrophils % 86.6 % (38.7-73.9); Platelet Count 240 T/CUMM (130-400); Red Blood Count 3.46 MC/CUMM (3.8-5.5); Red Cell Distribution Width 15.3 % (9.3-17.3); White Blood Count 16.1 T/CUMM (4-12)
[2019-03-25 04:07] LABS: CKMB % 3.2 %
[2019-03-25 04:09] LABS: Troponin I 2.59 NG/ML (0.00-0.045)
[2019-03-25 04:16] LABS: Alanine Aminotransferase 26 U/L (16-61); Albumin 3.2 G/DL (3.4-5.0); Alkaline Phosphatase 32 U/L (45-117); Aspartate Amino Transferase 33 U/L (0-37); Bilirubin,Direct < 0.100 MG/DL (0.0-0.20); Bilirubin,Total < 0.39 MG/DL (0.2-1.0); Blood Urea Nitrogen 24 MG/DL (7-18); Calcium 8.3 MG/DL (8.5-10.1); Estimated Glom Filtration Rate 63 ML/MIN; Glucose 114 MG/DL (74-106); Osmolality,Calculated 290.8 MOS/KG (273-304); Total Protein 6.1 G/DL (6.4-8.3)
[2019-03-25] MEDS: cloNIDine 0.1 MG TABLET PO SCH ×3 (05:45→22:31)
[2019-03-25] MEDS: INSULIN REGULAR 100 UNIT/ML SUBCUT SCH ×3 (07:17→22:32)
[2019-03-25] MEDS: CEFUROXIME INJ 1,500 MG in SYRINGE 1 EACH IV SCH (07:18)
[2019-03-25] MEDS: CHLORHEXIDINE 0.12% ORAL RINSE 60 ML BOTTLE SWISH/SPIT SCH ×2 (08:13→22:32)
[2019-03-25] MEDS: oxyCODONE/ACETAMINOPHEN 5-325 MG TABLET PO PRN (13:00)
[2019-03-25] MEDS ORDERED: MECLIZINE 25 MG TABLET PO SCH (15:00)
[2019-03-25] MEDS ORDERED: cloNIDine 0.1 MG TABLET PO SCH (15:00)
[2019-03-25] MEDS ORDERED: SODIUM CHLOR 0.45% KCL 20 MEQ 20 MEQ/1,000 ML BAG IV SCH (16:21)
[2019-03-25] MEDS ORDERED: ACETAMINOPHEN 325 MG TABLET PO PRN (16:21)
[2019-03-25] MEDS ORDERED: GLUCAGON 1 MG VIAL IM PRN ×2 (16:21)
[2019-03-25] MEDS ORDERED: ALUMINUM/MAGNES/SIMETH MAX STR 30 ML UDCUP PO PRN (16:21)
[2019-03-25] MEDS ORDERED: DEXTROSE 50% 25 GM/50 ML VIAL IV PRN ×2 (16:21)
[2019-03-25] MEDS ORDERED: MAGNESIUM SULF RIDER 2 GM in PREMIX 1 EACH IV PRN (16:21)
[2019-03-25] MEDS ORDERED: ZALEPLON 5 MG CAPSULE PO PRN (16:21)
[2019-03-25] MEDS ORDERED: MAGNESIUM SULF RIDER 4 GM in PREMIX 1 EACH IV PRN (16:21)
[2019-03-25] MEDS ORDERED: oxyCODONE/ACETAMINOPHEN 5-325 MG TABLET PO PRN (16:21)
[2019-03-25] MEDS ORDERED: ONDANSETRON 4 MG/2 ML VIAL IV PRN (16:21)
[2019-03-25] MEDS ORDERED: MAGNESIUM HYDROXIDE SUSP 30 ML UDCUP PO PRN (16:21)
[2019-03-25] MEDS ORDERED: POTASSIUM CHLORIDE 20 MEQ TABLET PO PRN (16:21)
[2019-03-25] MEDS: KETOROLAC 15 MG/1 ML VIAL IV SCH ×2 (17:20→22:31)
[2019-03-25] MEDS: METOPROLOL TARTRATE 50 MG TABLET PO SCH (22:31)
[2019-03-25] MEDS: ROSUVASTATIN 20 MG TABLET PO SCH (22:31)
[2019-03-25] MEDS: buPROPion XL 150 MG TABLET PO SCH (22:31)
[2019-03-25] MEDS: AMIODARONE 200 MG TABLET PO SCH (22:31)
[2019-03-26] MEDS: INSULIN REGULAR 100 UNIT/ML SUBCUT SCH ×6 (02:44→21:34)
[2019-03-26] MEDS: KETOROLAC 15 MG/1 ML VIAL IV SCH ×4 (05:25→21:33)
[2019-03-26 05:56] LABS: Basophils % 0.3 % (0.0-0.8); Eosinophils % 0.1 % (0.00-10.9); Hematocrit 27.9 VOL% (42.0-52.0); Hemoglobin 8.5 GM/DL (14.0-18.0); Immature Granulocytes % 0.9 %; Immature Granulocytes Absolute 0.11 #; Lymphocytes # 1.9 10*3/uL (1.4-4.0); Lymphocytes % 14.4 % (21.2-54.2); Mean Corpuscular HGB Conc 30.5 GM/DL (32-36); Mean Corpuscular Volume 92.4 FL (87-102); Mean Platelet Volume 11.6 FL (9.6-12.0); Monocytes % 11.8 % (1.7-12.7); Neutrophils % 72.5 % (38.7-73.9); Platelet Count 251 T/CUMM (130-400); Red Blood Count 3.02 MC/CUMM (3.8-5.5); White Blood Count 12.8 T/CUMM (4-12)
[2019-03-26] MEDS ORDERED: FUROSEMIDE 40 MG/4 ML VIAL IV ONE (06:00)
[2019-03-26 06:29] LABS: Alanine Aminotransferase 19 U/L (16-61); Albumin 2.6 G/DL (3.4-5.0); Alkaline Phosphatase 28 U/L (45-117); Aspartate Amino Transferase 11 U/L (0-37); Bilirubin,Direct < 0.100 MG/DL (0.0-0.20); Bilirubin,Indirect 0.3 MG/DL (0.0-1.0); Bilirubin,Total < 0.39 MG/DL (0.2-1.0); Blood Urea Nitrogen 36 MG/DL (7-18); Calcium 8.2 MG/DL (8.5-10.1); Estimated Glom Filtration Rate 53 ML/MIN; Glucose 116 MG/DL (74-106); Osmolality,Calculated 287.4 MOS/KG (273-304); Total Protein 5.8 G/DL (6.4-8.3)
[2019-03-26] MEDS: FERROUS SULFATE 325 MG TABLET PO SCH (08:44)
[2019-03-26] MEDS: AMIODARONE 200 MG TABLET PO SCH ×2 (08:44→21:34)
[2019-03-26] MEDS: METOPROLOL TARTRATE 50 MG TABLET PO SCH ×2 (08:44→21:33)
[2019-03-26] MEDS: DOCUSATE SODIUM 100 MG CAPSULE PO SCH (08:44)
[2019-03-26] MEDS: ASPIRIN EC 81 MG TABLET PO SCH (08:44)
[2019-03-26] MEDS: PANTOPRAZOLE 40 MG TABLET PO SCH (08:44)
[2019-03-26] MEDS: LOSARTAN 25 MG TABLET PO SCH (08:44)
[2019-03-26] MEDS: FENOFIBRATE 145 MG TABLET PO SCH (08:44)
[2019-03-26] MEDS: buPROPion XL 150 MG TABLET PO SCH ×2 (08:45→21:34)
[2019-03-26] MEDS: CHLORHEXIDINE 0.12% ORAL RINSE 60 ML BOTTLE SWISH/SPIT SCH ×2 (12:25→22:38)
[2019-03-26] MEDS ORDERED: cloNIDine 0.1 MG TABLET PO SCH (14:30)
[2019-03-26] MEDS: ROSUVASTATIN 20 MG TABLET PO SCH (21:34)
[2019-03-26] MEDS: oxyCODONE/ACETAMINOPHEN 5-325 MG TABLET PO PRN (22:35)
[2019-03-27] MEDS: KETOROLAC 15 MG/1 ML VIAL IV SCH ×4 (04:34→22:55)
[2019-03-27 05:07] LABS: Basophils % 0.2 % (0.0-0.8); Eosinophils # 0.1 10*3/uL (0.0-0.87); Eosinophils % 0.9 % (0.00-10.9); Hematocrit 27.8 VOL% (42.0-52.0); Hemoglobin 8.4 GM/DL (14.0-18.0); Immature Granulocytes % 0.7 %; Immature Granulocytes Absolute 0.09 #; Lymphocytes % 16.7 % (21.2-54.2); Mean Corpuscular HGB Conc 30.2 GM/DL (32-36); Mean Corpuscular Volume 92.1 FL (87-102); Neutrophils % 68.5 % (38.7-73.9); Platelet Count 304 T/CUMM (130-400); Red Blood Count 3.02 MC/CUMM (3.8-5.5); Red Cell Distribution Width 15.9 % (9.3-17.3); White Blood Count 12.2 T/CUMM (4-12)
[2019-03-27 05:28] LABS: Alanine Aminotransferase 22 U/L (16-61); Albumin 2.8 G/DL (3.4-5.0); Alkaline Phosphatase 31 U/L (45-117); Aspartate Amino Transferase 10 U/L (0-37); Bilirubin,Indirect 0.5 MG/DL (0.0-1.0); Blood Urea Nitrogen 50 MG/DL (7-18); Calcium 8.6 MG/DL (8.5-10.1); Estimated Glom Filtration Rate 53 ML/MIN; Glucose 120 MG/DL (74-106); Total Protein 6.2 G/DL (6.4-8.3)
[2019-03-27 05:29] LABS: Troponin I 0.612 NG/ML (0.00-0.045)
[2019-03-27] MEDS: INSULIN REGULAR 100 UNIT/ML SUBCUT SCH ×4 (08:58→21:57)
[2019-03-27] MEDS: FERROUS SULFATE 325 MG TABLET PO SCH (09:11)
[2019-03-27] MEDS: buPROPion XL 150 MG TABLET PO SCH ×2 (09:11→21:56)
[2019-03-27] MEDS: LOSARTAN 25 MG TABLET PO SCH (09:11)
[2019-03-27] MEDS: METOPROLOL TARTRATE 50 MG TABLET PO SCH ×2 (09:11→21:57)
[2019-03-27] MEDS: PANTOPRAZOLE 40 MG TABLET PO SCH (09:11)
[2019-03-27] MEDS: FENOFIBRATE 145 MG TABLET PO SCH (09:11)
[2019-03-27] MEDS: CHLORHEXIDINE 0.12% ORAL RINSE 60 ML BOTTLE SWISH/SPIT SCH ×2 (09:11→22:01)
[2019-03-27] MEDS: DOCUSATE SODIUM 100 MG CAPSULE PO SCH (09:11)
[2019-03-27] MEDS: AMIODARONE 200 MG TABLET PO SCH ×2 (09:11→21:56)
[2019-03-27] MEDS: ASPIRIN EC 81 MG TABLET PO SCH (09:11)
[2019-03-27] MEDS: ROSUVASTATIN 20 MG TABLET PO SCH (21:56)
[2019-03-28] MEDS: KETOROLAC 15 MG/1 ML VIAL IV SCH ×2 (04:44→10:54)
[2019-03-28] MEDS: INSULIN REGULAR 100 UNIT/ML SUBCUT SCH ×4 (08:56→22:16)
[2019-03-28] MEDS: METOPROLOL TARTRATE 50 MG TABLET PO SCH ×2 (09:19→22:16)
[2019-03-28] MEDS: buPROPion XL 150 MG TABLET PO SCH ×2 (09:19→22:16)
[2019-03-28] MEDS: ASPIRIN EC 81 MG TABLET PO SCH (09:19)
[2019-03-28] MEDS: FENOFIBRATE 145 MG TABLET PO SCH (09:19)
[2019-03-28] MEDS: FERROUS SULFATE 325 MG TABLET PO SCH (09:19)
[2019-03-28] MEDS: PANTOPRAZOLE 40 MG TABLET PO SCH (09:19)
[2019-03-28] MEDS: AMIODARONE 200 MG TABLET PO SCH ×2 (09:19→22:16)
[2019-03-28] MEDS: LOSARTAN 25 MG TABLET PO SCH (09:19)
[2019-03-28] MEDS: DOCUSATE SODIUM 100 MG CAPSULE PO SCH (09:19)
[2019-03-28] MEDS: CHLORHEXIDINE 0.12% ORAL RINSE 60 ML BOTTLE SWISH/SPIT SCH ×2 (09:20→22:19)
[2019-03-28] MEDS ORDERED: hydrALAZINE 20 MG/1 ML VIAL IV PRN (19:52)
[2019-03-28] MEDS: hydrALAZINE 25 MG TABLET PO SCH (20:09)
[2019-03-28] MEDS: ROSUVASTATIN 20 MG TABLET PO SCH (22:16)
[2019-03-29 03:48] LABS: Basophils # 0.1 10*3/uL (0.0-0.2); Basophils % 0.4 % (0.0-0.8); Eosinophils # 0.5 10*3/uL (0.0-0.87); Eosinophils % 4.5 % (0.00-10.9); Hematocrit 29.7 VOL% (42.0-52.0); Hemoglobin 8.9 GM/DL (14.0-18.0); Immature Granulocytes % 0.9 %; Immature Granulocytes Absolute 0.11 #; Lymphocytes # 1.7 10*3/uL (1.4-4.0); Lymphocytes % 14.8 % (21.2-54.2); Mean Corpuscular Volume 91.7 FL (87-102); Mean Platelet Volume 11.4 FL (9.6-12.0); Monocytes % 11.2 % (1.7-12.7); Neutrophils % 68.2 % (38.7-73.9); Platelet Count 437 T/CUMM (130-400); Red Blood Count 3.24 MC/CUMM (3.8-5.5); Red Cell Distribution Width 15.5 % (9.3-17.3); White Blood Count 11.7 T/CUMM (4-12)
[2019-03-29 04:18] LABS: Alanine Aminotransferase 23 U/L (16-61); Albumin 2.8 G/DL (3.4-5.0); Alkaline Phosphatase 45 U/L (45-117); Aspartate Amino Transferase 10 U/L (0-37); Bilirubin,Indirect 0.6 MG/DL (0.0-1.0); Blood Urea Nitrogen 28 MG/DL (7-18); Estimated Glom Filtration Rate 78 ML/MIN; Glucose 166 MG/DL (74-106); Osmolality,Calculated 288.4 MOS/KG (273-304); Total Protein 6.6 G/DL (6.4-8.3)
[2019-03-29 04:20] LABS: Troponin I 0.267 NG/ML (0.00-0.045)
[2019-03-29] MEDS: INSULIN REGULAR 100 UNIT/ML SUBCUT SCH ×4 (09:13→23:09)
[2019-03-29] MEDS: buPROPion XL 150 MG TABLET PO SCH ×2 (09:18→21:28)
[2019-03-29] MEDS: PANTOPRAZOLE 40 MG TABLET PO SCH (09:18)
[2019-03-29] MEDS: ASPIRIN EC 81 MG TABLET PO SCH (09:18)
[2019-03-29] MEDS: LOSARTAN 25 MG TABLET PO SCH (09:18)
[2019-03-29] MEDS: AMIODARONE 200 MG TABLET PO SCH ×2 (09:18→21:28)
[2019-03-29] MEDS: hydrALAZINE 25 MG TABLET PO SCH ×3 (09:18→21:28)
[2019-03-29] MEDS: FERROUS SULFATE 325 MG TABLET PO SCH (09:18)
[2019-03-29] MEDS: FENOFIBRATE 145 MG TABLET PO SCH (09:18)
[2019-03-29] MEDS: METOPROLOL TARTRATE 50 MG TABLET PO SCH ×2 (09:18→21:28)
[2019-03-29] MEDS: DOCUSATE SODIUM 100 MG CAPSULE PO SCH (09:19)
[2019-03-29] MEDS: CHLORHEXIDINE 0.12% ORAL RINSE 60 ML BOTTLE SWISH/SPIT SCH ×2 (09:19→21:29)
[2019-03-29] MEDS: amLODIPine 5 MG TABLET PO SCH (12:28)
[2019-03-29] MEDS: ROSUVASTATIN 20 MG TABLET PO SCH (21:28)
[2019-03-30 04:36] LABS: Basophils # 0.1 10*3/uL (0.0-0.2); Basophils % 0.6 % (0.0-0.8); Eosinophils # 0.8 10*3/uL (0.0-0.87); Eosinophils % 5.9 % (0.00-10.9); Hematocrit 30.2 VOL% (42.0-52.0); Hemoglobin 9.2 GM/DL (14.0-18.0); Immature Granulocytes % 1.3 %; Immature Granulocytes Absolute 0.17 #; Lymphocytes % 15.8 % (21.2-54.2); Mean Corpuscular HGB Conc 30.5 GM/DL (32-36); Monocytes % 10.8 % (1.7-12.7); Neutrophils % 65.6 % (38.7-73.9); Platelet Count 542 T/CUMM (130-400); Red Blood Count 3.32 MC/CUMM (3.8-5.5); Red Cell Distribution Width 15.5 % (9.3-17.3); White Blood Count 12.7 T/CUMM (4-12)
[2019-03-30 04:58] LABS: Alanine Aminotransferase 23 U/L (16-61); Albumin 2.7 G/DL (3.4-5.0); Alkaline Phosphatase 42 U/L (45-117); Aspartate Amino Transferase 10 U/L (0-37); Bilirubin,Indirect 0.3 MG/DL (0.0-1.0); Blood Urea Nitrogen 22 MG/DL (7-18); Calcium 9.1 MG/DL (8.5-10.1); Estimated Glom Filtration Rate 99 ML/MIN; Glucose 150 MG/DL (74-106); Osmolality,Calculated 284.4 MOS/KG (273-304); Total Protein 6.4 G/DL (6.4-8.3)
[2019-03-30 05:00] LABS: Troponin I 0.146 NG/ML (0.00-0.045)
[2019-03-30] MEDS: INSULIN REGULAR 100 UNIT/ML SUBCUT SCH ×4 (09:01→22:25)
[2019-03-30] MEDS: ASPIRIN EC 81 MG TABLET PO SCH (09:23)
[2019-03-30] MEDS: hydrALAZINE 25 MG TABLET PO SCH ×3 (09:23→22:25)
[2019-03-30] MEDS: DOCUSATE SODIUM 100 MG CAPSULE PO SCH (09:24)
[2019-03-30] MEDS: AMIODARONE 200 MG TABLET PO SCH ×2 (09:24→22:25)
[2019-03-30] MEDS: LOSARTAN 25 MG TABLET PO SCH (09:25)
[2019-03-30] MEDS: METOPROLOL TARTRATE 50 MG TABLET PO SCH ×2 (09:25→22:24)
[2019-03-30] MEDS: FERROUS SULFATE 325 MG TABLET PO SCH (09:25)
[2019-03-30] MEDS: PANTOPRAZOLE 40 MG TABLET PO SCH (09:26)
[2019-03-30] MEDS: amLODIPine 5 MG TABLET PO SCH (09:26)
[2019-03-30] MEDS: FENOFIBRATE 145 MG TABLET PO SCH (09:27)
[2019-03-30] MEDS: buPROPion XL 150 MG TABLET PO SCH ×2 (09:27→22:25)
[2019-03-30] MEDS: CHLORHEXIDINE 0.12% ORAL RINSE 60 ML BOTTLE SWISH/SPIT SCH ×2 (09:29→22:24)
[2019-03-30] MEDS: ROSUVASTATIN 20 MG TABLET PO SCH (22:25)
[2019-03-31 08:21] VITALS: BP 144/75
[2019-03-31] MEDS: FERROUS SULFATE 325 MG TABLET PO SCH (09:15)
[2019-03-31] MEDS: ASPIRIN EC 81 MG TABLET PO SCH (09:15)
[2019-03-31] MEDS: hydrALAZINE 25 MG TABLET PO SCH (09:15)
[2019-03-31] MEDS: FENOFIBRATE 145 MG TABLET PO SCH (09:15)
[2019-03-31] MEDS: INSULIN REGULAR 100 UNIT/ML SUBCUT SCH (09:15)
[2019-03-31] MEDS: LOSARTAN 25 MG TABLET PO SCH (09:15)
[2019-03-31] MEDS: DOCUSATE SODIUM 100 MG CAPSULE PO SCH (09:15)
[2019-03-31] MEDS: buPROPion XL 150 MG TABLET PO SCH (09:15)
[2019-03-31] MEDS: AMIODARONE 200 MG TABLET PO SCH (09:16)
[2019-03-31] MEDS: METOPROLOL TARTRATE 50 MG TABLET PO SCH (09:16)
[2019-03-31] MEDS: PANTOPRAZOLE 40 MG TABLET PO SCH (09:16)
[2019-03-31] MEDS: CHLORHEXIDINE 0.12% ORAL RINSE 60 ML BOTTLE SWISH/SPIT SCH (09:16)
[2019-03-31] MEDS: amLODIPine 5 MG TABLET PO SCH (09:16)
[2019-03-31] MEDS ORDERED: INFLUENZA VIRUS VACCINE 0.5 ML SYRINGE IM ONE (10:30)
== END 2019-03-31 11:03 | disposition home health service (06) | DRG 233 ==
LOC: N.ED 20:37 → N.EDINP 21:35 → N.ICU 23:34 → N.TELEN 03-19 13:58 → N.CVR 03-24 08:09 → N.TELEN 03-24 08:19 → N.CVR 03-24 11:36 → N.ICU 03-25 10:58 → N.TELES 03-25 15:15
PROVIDERS: ADMIT Internal Medicine Interventional Cardiology; ATTEND Internal Medicine Interventional Cardiology
PROC: CLCCHCL (ICD-10-PCS; 2019-03-18 15:15)

== ENCOUNTER 2019-11-12 11:30 | Inpatient (IN) ==
[2019-11-12 12:30] LABS: Basophils # 0.1 10*3/uL (0.0-0.2); Basophils % 0.6 % (0.0-0.8); Eosinophils # 0.1 10*3/uL (0.0-0.87); Eosinophils % 0.8 % (0.00-10.9); Hematocrit 24.1 VOL% (42.0-52.0); Hemoglobin 6.7 GM/DL (14.0-18.0); Immature Granulocytes % 1.1 %; Immature Granulocytes Absolute 0.13 #; Lymphocytes # 1.4 10*3/uL (1.4-4.0); Lymphocytes % 11.6 % (21.2-54.2); Mean Corpuscular HGB Conc 27.8 GM/DL (32-36); Mean Corpuscular Volume 87.6 FL (87-102); Mean Platelet Volume 9.9 FL (9.6-12.0); Neutrophils % 76.9 % (38.7-73.9); Red Blood Count 2.75 MC/CUMM (3.8-5.5); Red Cell Distribution Width 17.7 % (9.3-17.3); White Blood Count 12.1 T/CUMM (4-12)
[2019-11-12 12:32] LABS: Platelet Count 819 T/CUMM (130-400)
[2019-11-12] MEDS ORDERED: SODIUM CHLORIDE 0.9% 1,000 ML IV PRN (12:46)
[2019-11-12 12:57] LABS: Platelet Estimate Increased
[2019-11-12 12:58] LABS: Alanine Aminotransferase 842 U/L (16-61); Albumin 3.4 G/DL (3.4-5.0); Alkaline Phosphatase 62 U/L (45-117); Anisocytosis 2+; Blood Urea Nitrogen 29 MG/DL (7-18); Calcium 8.7 MG/DL (8.5-10.1); Estimated Glom Filtration Rate 49 ML/MIN; Glucose 155 MG/DL (74-106); Polychromasia Slight; Total Protein 7.1 G/DL (6.4-8.3)
[2019-11-12 13:11] LABS: Aspartate Amino Transferase 1576 U/L (0-37)
[2019-11-12] MEDS ORDERED: ONDANSETRON 4 MG/2 ML VIAL IV PRN (13:47)
[2019-11-12] MEDS ORDERED: ALBUTEROL 2.5 MG/3 ML NEB RESP TX PRN (13:47)
[2019-11-12] MEDS ORDERED: PANTOPRAZOLE 40 MG VIAL IV SCH (14:00)
[2019-11-12] MEDS ORDERED: MORPHINE 4 MG/1 ML VIAL IV PRN (14:01)
[2019-11-12] MEDS ORDERED: hydrALAZINE 25 MG TABLET PO SCH (15:00)
[2019-11-12 15:33] LABS: Folate > 24.0 NG/ML (5.4-24.0); Vitamin B12 1188 PG/ML (211-911)
[2019-11-12] MEDS: PANTOPRAZOLE 40 MG VIAL IV SCH (16:11)
[2019-11-12] MEDS: SODIUM CHLORIDE 0.9% 1,000 ML IV SCH (16:11)
[2019-11-12 17:13] LABS: Apearance,Urine CLEAR (Clear); Bilirubin,Urine Negative (Negative); Blood, Urine Large mg/dL (Negative); Glucose,Urine (UA) Negative (Negative); Hyaline Casts,Urine 1 /LPF (0-3); Ketones,Urine Negative (Negative); Mucus,Urine Occasional /LPF (Occasional); Nitrite,Urine Negative (Negative); Protein,Urine 100 MG/DL; RBC,Urine 14 /HPF (0-4); Urine Color Amber (Yellow); Urine Specific Gravity 1.023 (1.001-1.035); WBC,Urine 4 /HPF (0-6)
[2019-11-12 18:01] LABS: Hepatitis B Core IgM Quant 0.14 Index; Hepatitis B Surface Ag Quant 0.13 Index; Hepatitis B Surface Ag Result Negative (Negative); Hepatitis C Virus Ab Quant 0.11 Index; Hepatitis C Virus Ab Result Negative (Negative)
[2019-11-12 18:47] LABS: Basophils # 0.1 10*3/uL (0.0-0.2); Basophils % 0.6 % (0.0-0.8); Eosinophils # 0.1 10*3/uL (0.0-0.87); Eosinophils % 1.2 % (0.00-10.9); Hematocrit 26.4 VOL% (42.0-52.0); Hemoglobin 8.1 GM/DL (14.0-18.0); Immature Granulocytes % 0.9 %; Immature Granulocytes Absolute 0.09 #; Lymphocytes # 1.6 10*3/uL (1.4-4.0); Lymphocytes % 16.7 % (21.2-54.2); Mean Corpuscular HGB Conc 30.7 GM/DL (32-36); Mean Corpuscular Volume 82.8 FL (87-102); Mean Platelet Volume 9.8 FL (9.6-12.0); Monocytes % 8.5 % (1.7-12.7); NRBC # 0.25 10*3/uL; Neutrophils % 72.1 % (38.7-73.9); Platelet Count 657 T/CUMM (130-400); Red Blood Count 3.19 MC/CUMM (3.8-5.5); Red Cell Distribution Width 16.7 % (9.3-17.3); White Blood Count 9.5 T/CUMM (4-12)
[2019-11-12 20:06] LABS: Sedimentation Rate-Westergren 35 MM/HR (0-20)
[2019-11-12] MEDS: METOPROLOL TARTRATE 25 MG TABLET PO SCH (20:49)
[2019-11-12] MEDS: INSULIN REGULAR 100 UNIT/ML SUBCUT SCH (20:49)
[2019-11-12] MEDS: buPROPion XL 150 MG TABLET PO SCH (20:49)
[2019-11-13 01:03] LABS: Hematocrit 29.3 VOL% (42.0-52.0); Hemoglobin 8.9 GM/DL (14.0-18.0)
[2019-11-13] MEDS: PANTOPRAZOLE 40 MG VIAL IV SCH ×2 (03:55→14:07)
[2019-11-13 06:26] LABS: Basophils # 0.1 10*3/uL (0.0-0.2); Basophils % 0.8 % (0.0-0.8); Eosinophils # 0.2 10*3/uL (0.0-0.87); Eosinophils % 1.4 % (0.00-10.9); Hematocrit 29.6 VOL% (42.0-52.0); Hemoglobin 8.6 GM/DL (14.0-18.0); Immature Granulocytes % 1.1 %; Immature Granulocytes Absolute 0.13 #; Lymphocytes # 1.4 10*3/uL (1.4-4.0); Lymphocytes % 12.7 % (21.2-54.2); Mean Corpuscular HGB Conc 29.1 GM/DL (32-36); Mean Corpuscular Volume 85.8 FL (87-102); Mean Platelet Volume 9.8 FL (9.6-12.0); Monocytes % 7.5 % (1.7-12.7); NRBC # 0.35 10*3/uL; Neutrophils % 76.5 % (38.7-73.9); Platelet Count 667 T/CUMM (130-400); Red Blood Count 3.45 MC/CUMM (3.8-5.5); Red Cell Distribution Width 17.2 % (9.3-17.3); White Blood Count 11.4 T/CUMM (4-12)
[2019-11-13] MEDS ORDERED: LACTATED RINGERS 1,000 ML IV SCH (08:00)
[2019-11-13] MEDS: INSULIN REGULAR 100 UNIT/ML SUBCUT SCH ×4 (08:32→22:03)
[2019-11-13] MEDS: SODIUM CHLORIDE 0.9% 1,000 ML IV SCH (08:33)
[2019-11-13] MEDS: buPROPion XL 150 MG TABLET PO SCH ×2 (08:43→22:02)
[2019-11-13] MEDS: METOPROLOL TARTRATE 25 MG TABLET PO SCH ×2 (08:43→22:03)
[2019-11-13 08:52] LABS: Calcium 8.5 MG/DL (8.5-10.1); Osmolality,Calculated 278.7 MOS/KG (273-304)
[2019-11-13] MEDS ORDERED: LOSARTAN 25 MG TABLET PO SCH (09:00)
[2019-11-13] MEDS ORDERED: dilTIAZem Drip 125 MG/125 ML PREMIX IV SCH (09:00)
[2019-11-13 10:40] LABS: Hemoglobin A1 (Alkaline) 97.9 % (96.5-98.5); Hemoglobin A2 (Alkaline) 2.1 % (1.5-3.5)
[2019-11-13 11:26] LABS: Hematocrit 29.4 VOL% (42.0-52.0); Hemoglobin 8.5 GM/DL (14.0-18.0)
[2019-11-13] MEDS ORDERED: MIDAZOLAM 2 MG/2 ML VIAL ONE (13:51)
[2019-11-13] MEDS ORDERED: LIDOCAINE 2% 5 ML VIAL ONE (13:51)
[2019-11-13] MEDS ORDERED: ETOMIDATE 40 MG/20 ML VIAL IV ONE (13:52)
[2019-11-13] MEDS: DILTIAZEM CD 120 MG CAPSULE PO SCH ×2 (14:30→22:02)
[2019-11-13 19:53] LABS: Hematocrit 27.9 VOL% (42.0-52.0); Hemoglobin 8.1 GM/DL (14.0-18.0)
[2019-11-14] MEDS: PANTOPRAZOLE 40 MG VIAL IV SCH (02:00)
[2019-11-14 07:01] LABS: Basophils # 0.1 10*3/uL (0.0-0.2); Basophils % 0.7 % (0.0-0.8); Eosinophils # 0.4 10*3/uL (0.0-0.87); Eosinophils % 3.2 % (0.00-10.9); Hematocrit 26.4 VOL% (42.0-52.0); Hemoglobin 7.9 GM/DL (14.0-18.0); Immature Granulocytes % 1.6 %; Lymphocytes # 1.3 10*3/uL (1.4-4.0); Lymphocytes % 10.2 % (21.2-54.2); Mean Corpuscular HGB Conc 29.9 GM/DL (32-36); Mean Corpuscular Volume 84.3 FL (87-102); Monocytes % 7.5 % (1.7-12.7); NRBC # 0.22 10*3/uL; Neutrophils % 76.8 % (38.7-73.9); Platelet Count 557 T/CUMM (130-400); Red Blood Count 3.13 MC/CUMM (3.8-5.5); Red Cell Distribution Width 17.2 % (9.3-17.3); White Blood Count 12.3 T/CUMM (4-12)
[2019-11-14 07:17] LABS: Calcium 8.4 MG/DL (8.5-10.1); Osmolality,Calculated 281.8 MOS/KG (273-304)
[2019-11-14] MEDS: buPROPion XL 150 MG TABLET PO SCH (08:39)
[2019-11-14] MEDS: DILTIAZEM CD 120 MG CAPSULE PO SCH (08:39)
[2019-11-14] MEDS: METOPROLOL TARTRATE 25 MG TABLET PO SCH (08:40)
[2019-11-14] MEDS: INSULIN REGULAR 100 UNIT/ML SUBCUT SCH ×2 (09:41→13:19)
[2019-11-14 11:12] LABS: Hemoglobin 7.5 GM/DL (14.0-18.0)
[2019-11-14 12:03] VITALS: BP 118/67
== END 2019-11-14 14:10 | disposition home health service (06) | DRG 813 ==
LOC: N.ED 11:30 → N.EDINP 13:47 → SUATTDRO 13:47 → N.EDINP 15:45 → N.ICU 16:13 → N.TELES 11-13 16:26
PROVIDERS: ADMIT Internal Medicine; ATTEND Internal Medicine

== ENCOUNTER 2019-11-18 10:12 | Inpatient (IN) ==
[~2019-11-18 10:12] MED LIST: ETOMIDATE 20 MG/10 ML VIAL IV ONE; LIDOCAINE 2% 5 ML VIAL ONE; propofoL 200 MG/20 ML VIAL IV ONE
[2019-11-18] MEDS ORDERED: ONDANSETRON 4 MG/2 ML VIAL IV PRN (10:43)
[2019-11-18] MEDS: LACTATED RINGERS 1,000 ML IV SCH (11:12)
[2019-11-18 13:53] LABS: Hematocrit 29.4 VOL% (42.0-52.0); Hemoglobin 8.7 GM/DL (14.0-18.0)
[2019-11-18] MEDS ORDERED: ACETAMINOPHEN 325 MG TABLET PO PRN (14:25)
[2019-11-18] MEDS ORDERED: DEXTROSE 10% 250 ML BAG IV PRN (14:25)
[2019-11-18] MEDS ORDERED: GLUCAGON 1 MG VIAL IM PRN (14:25)
[2019-11-18] MEDS ORDERED: DOCUSATE SODIUM 100 MG CAPSULE PO PRN (14:25)
[2019-11-18] MEDS: SODIUM CHLORIDE 0.9% 1,000 ML IV SCH (15:56)
[2019-11-18 16:39] LABS: Calcium 9.4 MG/DL (8.5-10.1)
[2019-11-18 16:54] LABS: Basophils # 0.1 10*3/uL (0.0-0.2); Basophils % 0.7 % (0.0-0.8); Eosinophils # 0.5 10*3/uL (0.0-0.87); Eosinophils % 5.5 % (0.00-10.9); Hemoglobin 9.9 GM/DL (14.0-18.0); Immature Granulocytes % 0.6 %; Immature Granulocytes Absolute 0.05 #; Lymphocytes # 1.7 10*3/uL (1.4-4.0); Lymphocytes % 20.6 % (21.2-54.2); Mean Corpuscular HGB Conc 29.1 GM/DL (32-36); Mean Corpuscular Volume 84.4 FL (87-102); Mean Platelet Volume 9.6 FL (9.6-12.0); Monocytes % 8.2 % (1.7-12.7); NRBC # 0.04 10*3/uL; Neutrophils % 64.4 % (38.7-73.9); Platelet Count 696 T/CUMM (130-400); Red Blood Count 4.03 MC/CUMM (3.8-5.5); Red Cell Distribution Width 16.9 % (9.3-17.3); White Blood Count 8.4 T/CUMM (4-12)
[2019-11-18] MEDS: METOPROLOL TARTRATE 5 MG/5 ML VIAL IV SCH ×3 (16:54→17:07)
[2019-11-18] MEDS: SOTALOL 80 MG TABLET PO SCH ×2 (17:10→20:11)
[2019-11-18] MEDS: INSULIN LISPRO 100 UNIT/ML SUBCUT SCH ×2 (17:18→20:40)
[2019-11-18 17:21] LABS: Platelet Estimate Increased
[2019-11-18 17:22] LABS: Hypochromasia 2+; Microcytosis Slight; Polychromasia 2+
[2019-11-18 17:23] LABS: Anisocytosis 2+; Ovalocytes 1+; Poikilocytosis 2+
[2019-11-18 17:24] LABS: Schistocytes 1+
[2019-11-18] MEDS ORDERED: MAGNESIUM SULF RIDER 4 GM in PREMIX 1 EACH IV PRN (17:26)
[2019-11-18] MEDS ORDERED: MAGNESIUM SULF RIDER 2 GM in PREMIX 1 EACH IV ONE (17:27)
[2019-11-18] MEDS ORDERED: diphenhydrAMINE CAP 25 MG CAPSULE PO PRN (17:27)
[2019-11-18] MEDS ORDERED: POTASSIUM CHLORIDE 20 MEQ TABLET PO ONE (17:27)
[2019-11-18] MEDS: ASCORBIC ACID 500 MG TABLET PO SCH ×2 (17:43→20:11)
[2019-11-18] MEDS: APIXABAN 5 MG TABLET PO SCH (20:11)
[2019-11-18] MEDS: buPROPion XL 150 MG TABLET PO SCH (20:11)
[2019-11-18] MEDS: PANTOPRAZOLE 40 MG TABLET PO SCH (20:11)
[2019-11-18] MEDS: DILTIAZEM CD 120 MG CAPSULE PO SCH (20:11)
[2019-11-18] MEDS ORDERED: METOPROLOL TARTRATE 25 MG TABLET PO SCH (21:00)
[2019-11-19 03:28] LABS: Calcium 8.6 MG/DL (8.5-10.1); Osmolality,Calculated 279.4 MOS/KG (273-304)
[2019-11-19 03:29] LABS: Basophils # 0.1 10*3/uL (0.0-0.2); Eosinophils # 0.9 10*3/uL (0.0-0.87); Hematocrit 30.3 VOL% (42.0-52.0); Hemoglobin 8.9 GM/DL (14.0-18.0); Immature Granulocytes % 0.4 %; Immature Granulocytes Absolute 0.04 #; Lymphocytes % 19.3 % (21.2-54.2); Mean Corpuscular HGB Conc 29.4 GM/DL (32-36); Mean Corpuscular Volume 83.7 FL (87-102); Mean Platelet Volume 9.7 FL (9.6-12.0); Monocytes % 10.6 % (1.7-12.7); NRBC # 0.02 10*3/uL; Neutrophils % 59.7 % (38.7-73.9); Platelet Count 549 T/CUMM (130-400); Red Blood Count 3.62 MC/CUMM (3.8-5.5); White Blood Count 10.2 T/CUMM (4-12)
[2019-11-19 03:30] LABS: Alanine Aminotransferase 216 U/L (16-61); Albumin 2.6 G/DL (3.4-5.0); Alkaline Phosphatase 63 U/L (45-117); Aspartate Amino Transferase 25 U/L (0-37); Bilirubin,Indirect 0.2 MG/DL (0.0-1.0); Bilirubin,Total < 0.39 MG/DL (0.2-1.0); Total Protein 6.4 G/DL (6.4-8.3)
[2019-11-19] MEDS: SODIUM CHLORIDE 0.9% 1,000 ML IV SCH ×2 (03:30→17:20)
[2019-11-19] MEDS ORDERED: PANTOPRAZOLE 40 MG TABLET PO SCH (09:00)
[2019-11-19] MEDS: ASCORBIC ACID 500 MG TABLET PO SCH ×2 (09:09→20:34)
[2019-11-19] MEDS: DILTIAZEM CD 120 MG CAPSULE PO SCH ×2 (09:09→20:35)
[2019-11-19] MEDS: PANTOPRAZOLE 40 MG TABLET PO SCH ×2 (09:10→20:35)
[2019-11-19] MEDS: buPROPion XL 150 MG TABLET PO SCH ×2 (09:10→20:35)
[2019-11-19] MEDS: APIXABAN 5 MG TABLET PO SCH ×2 (09:10→20:34)
[2019-11-19] MEDS: SOTALOL 80 MG TABLET PO SCH ×2 (09:17→20:34)
[2019-11-19] MEDS: INSULIN LISPRO 100 UNIT/ML SUBCUT SCH ×4 (09:26→20:48)
[2019-11-19] MEDS: LACTATED RINGERS 1,000 ML IV SCH (19:53)
[2019-11-20 08:10] LABS: Basophils # 0.1 10*3/uL (0.0-0.2); Basophils % 0.8 % (0.0-0.8); Eosinophils # 0.6 10*3/uL (0.0-0.87); Eosinophils % 6.3 % (0.00-10.9); Hematocrit 27.7 VOL% (42.0-52.0); Immature Granulocytes % 0.7 %; Immature Granulocytes Absolute 0.06 #; Lymphocytes # 1.5 10*3/uL (1.4-4.0); Lymphocytes % 17.2 % (21.2-54.2); Mean Corpuscular HGB Conc 28.9 GM/DL (32-36); Mean Corpuscular Volume 85.2 FL (87-102); Mean Platelet Volume 9.9 FL (9.6-12.0); Monocytes % 8.6 % (1.7-12.7); Neutrophils % 66.4 % (38.7-73.9); Platelet Count 461 T/CUMM (130-400); Red Blood Count 3.25 MC/CUMM (3.8-5.5); Red Cell Distribution Width 17.1 % (9.3-17.3); White Blood Count 8.9 T/CUMM (4-12)
[2019-11-20 08:26] LABS: Hypochromasia 1+; Microcytosis 1+; Platelet Estimate Adequate
[2019-11-20 08:32] LABS: Calcium 8.7 MG/DL (8.5-10.1); Osmolality,Calculated 281.4 MOS/KG (273-304)
[2019-11-20 08:46] LABS: Apearance,Urine CLOUDY (Clear); Bilirubin,Urine Negative (Negative); Blood, Urine Large mg/dL (Negative); Glucose,Urine (UA) Negative (Negative); Ketones,Urine Negative (Negative); Mucus,Urine Occasional /LPF (Occasional); Nitrite,Urine Negative (Negative); Protein,Urine 30 MG/DL; RBC,Urine 231 /HPF (0-4); Urine Color Yellow (Yellow); Urine Specific Gravity 1.018 (1.001-1.035); Urine Urobilinogen < 2.0 EU/DL (0.2-1.0)
[2019-11-20] MEDS: INSULIN LISPRO 100 UNIT/ML SUBCUT SCH ×4 (10:03→21:36)
[2019-11-20] MEDS: APIXABAN 5 MG TABLET PO SCH ×2 (10:04→21:27)
[2019-11-20] MEDS: buPROPion XL 150 MG TABLET PO SCH (10:04)
[2019-11-20] MEDS: ASCORBIC ACID 500 MG TABLET PO SCH ×2 (10:04→21:26)
[2019-11-20] MEDS: PANTOPRAZOLE 40 MG TABLET PO SCH (10:04)
[2019-11-20] MEDS: DILTIAZEM CD 120 MG CAPSULE PO SCH (10:04)
[2019-11-20] MEDS: MULTIVITAMIN (PRENATAL) TABLET PO SCH (10:05)
[2019-11-20] MEDS: SOTALOL 80 MG TABLET PO SCH ×2 (10:05→21:26)
[2019-11-20] MEDS ORDERED: ALPRAZolam 0.5 MG TABLET PO ONE (13:50)
[2019-11-20] MEDS ORDERED: FUROSEMIDE 20 MG/2 ML VIAL IV ONE (14:30)
[2019-11-20] MEDS ORDERED: ETOMIDATE 20 MG/10 ML VIAL IV ONE ×2 (14:59→15:04)
[2019-11-20] MEDS ORDERED: SUCCINYLCHOLINE 200 MG/10 ML VIAL ONE (15:00)
[2019-11-20] MEDS ORDERED: SUCCINYLCHOLINE 200 MG/10 ML VIAL IV ONE (15:03)
[2019-11-20 15:11] LABS: Osmolality,Calculated 278.1 MOS/KG (273-304)
[2019-11-20 15:31] LABS: Basophils # 0.2 10*3/uL (0.0-0.2); Eosinophils # 0.6 10*3/uL (0.0-0.87); Eosinophils % 4.2 % (0.00-10.9); Immature Granulocytes % 1.5 %; Immature Granulocytes Absolute 0.23 #; Lymphocytes # 3.3 10*3/uL (1.4-4.0); Lymphocytes % 21.3 % (21.2-54.2); Mean Corpuscular HGB Conc 28.4 GM/DL (32-36); Mean Corpuscular Volume 87.2 FL (87-102); Mean Platelet Volume 9.8 FL (9.6-12.0); Monocytes % 6.4 % (1.7-12.7); NRBC # 0.02 10*3/uL; Neutrophils % 65.6 % (38.7-73.9); Platelet Count 664 T/CUMM (130-400); Red Blood Count 3.99 MC/CUMM (3.8-5.5); Red Cell Distribution Width 17.1 % (9.3-17.3); White Blood Count 15.2 T/CUMM (4-12)
[2019-11-20 15:33] LABS: Hematocrit 34.8 VOL% (42.0-52.0); Hemoglobin 9.9 GM/DL (14.0-18.0)
[2019-11-20 15:37] LABS: Apearance,Urine CLOUDY (Clear); Bilirubin,Urine Negative (Negative); Blood, Urine Large mg/dL (Negative); Glucose,Urine (UA) >=500 mg/dL (Negative); Hyaline Casts,Urine 14 /LPF (0-3); Ketones,Urine Negative (Negative); Mucus,Urine Few /LPF (Occasional); Nitrite,Urine Negative (Negative); Protein,Urine 100 MG/DL; RBC,Urine 430 /HPF (0-4); Urine Color Amber (Yellow); Urine Urobilinogen < 2.0 EU/DL (0.2-1.0)
[2019-11-20 15:54] LABS: ABG Base Excess -6.8 MMOL/L (-2.5-2.5); ABG HCO3 18.8 MMOL/L (20-26); ABG Oxygen Saturation 98.1 % (95-100); ABG PCO2 47.7 MM HG (35-48); ABG TCO2 19.2 MMOL/L (23-27); Pt O2 Delivery Device Ventilator
[2019-11-20 16:06] LABS: Anisocytosis 1+; Macrocytosis Slight; Microcytosis 1+; Platelet Estimate Increased
[2019-11-20 16:07] LABS: Hypochromasia 1+
[2019-11-20] MEDS ORDERED: PHENYLEPHRINE DRIP 40 MG/250 ML PREMIX IV ONE (17:39)
[2019-11-20] MEDS: PHENYLEPHRINE DRIP 40 MG/250 ML PREMIX IV PRN (17:42)
[2019-11-20] MEDS ORDERED: PHENYLEPHRINE 50 MG/5 ML VIAL IV PRN (17:57)
[2019-11-20] MEDS: MEROPENEM 500 MG in SODIUM CHLORIDE 0.9% 100 ML IV SCH (18:25)
[2019-11-20] MEDS: SODIUM CHLORIDE 0.9% 1,000 ML IV SCH ×2 (18:58→21:27)
[2019-11-20] MEDS: PANTOPRAZOLE 40 MG VIAL IV SCH (21:26)
[2019-11-21] MEDS: MEROPENEM 500 MG in SODIUM CHLORIDE 0.9% 100 ML IV SCH ×4 (01:45→17:59)
[2019-11-21 04:57] LABS: Calcium 8.6 MG/DL (8.5-10.1); Osmolality,Calculated 280.4 MOS/KG (273-304)
[2019-11-21 05:26] LABS: ABG Base Excess -5.1 MMOL/L (-2.5-2.5); ABG HCO3 20.2 MMOL/L (20-26); ABG PCO2 32.7 MM HG (35-48); ABG TCO2 17.9 MMOL/L (23-27); Allen Test Positive; Pt O2 Delivery Device Ventilator
[2019-11-21 05:34] LABS: Basophils # 0.1 10*3/uL (0.0-0.2); Basophils % 0.5 % (0.0-0.8); Eosinophils # 0.3 10*3/uL (0.0-0.87); Hematocrit 27.7 VOL% (42.0-52.0); Hemoglobin 7.8 GM/DL (14.0-18.0); Immature Granulocytes % 0.5 %; Immature Granulocytes Absolute 0.06 #; Lymphocytes # 1.9 10*3/uL (1.4-4.0); Lymphocytes % 14.6 % (21.2-54.2); Mean Corpuscular HGB Conc 28.2 GM/DL (32-36); Mean Platelet Volume 9.9 FL (9.6-12.0); Monocytes % 13.9 % (1.7-12.7); Neutrophils % 68.5 % (38.7-73.9); Platelet Count 473 T/CUMM (130-400); Red Blood Count 3.22 MC/CUMM (3.8-5.5); Red Cell Distribution Width 17.1 % (9.3-17.3); White Blood Count 12.9 T/CUMM (4-12)
[2019-11-21 05:50] LABS: Hypochromasia 1+; Microcytosis 1+; Ovalocytes Slight; Platelet Estimate Increased
[2019-11-21] MEDS ORDERED: DEXTROSE 50% 25 GM/50 ML VIAL IV PRN (08:41)
[2019-11-21] MEDS ORDERED: GLUCAGON 1 MG VIAL IM PRN (08:41)
[2019-11-21] MEDS: SOTALOL 80 MG TABLET PO SCH ×2 (09:17→20:33)
[2019-11-21] MEDS: PANTOPRAZOLE 40 MG VIAL IV SCH ×2 (09:17→20:33)
[2019-11-21] MEDS: MULTIVITAMIN (PRENATAL) TABLET PO SCH (09:17)
[2019-11-21] MEDS: ASCORBIC ACID 500 MG TABLET PO SCH ×2 (09:17→20:33)
[2019-11-21] MEDS: INSULIN LISPRO 100 UNIT/ML SUBCUT SCH ×4 (09:24→20:48)
[2019-11-21] MEDS ORDERED: FUROSEMIDE 20 MG/2 ML VIAL IV ONE (14:04)
[2019-11-21] MEDS: SODIUM CHLORIDE 0.9% 1,000 ML IV SCH (17:00)
[2019-11-21] MEDS: PHENYLEPHRINE DRIP 40 MG/250 ML PREMIX IV PRN (20:34)
[2019-11-22] MEDS: MEROPENEM 500 MG in SODIUM CHLORIDE 0.9% 100 ML IV SCH ×5 (00:53→23:33)
[2019-11-22 03:20] LABS: Basophils # 0.1 10*3/uL (0.0-0.2); Basophils % 0.7 % (0.0-0.8); Eosinophils # 0.4 10*3/uL (0.0-0.87); Eosinophils % 3.8 % (0.00-10.9); Hematocrit 27.4 VOL% (42.0-52.0); Hemoglobin 7.9 GM/DL (14.0-18.0); Immature Granulocytes % 0.5 %; Immature Granulocytes Absolute 0.05 #; Lymphocytes # 1.6 10*3/uL (1.4-4.0); Mean Corpuscular HGB Conc 28.8 GM/DL (32-36); Mean Corpuscular Volume 84.6 FL (87-102); Mean Platelet Volume 9.8 FL (9.6-12.0); Monocytes % 9.4 % (1.7-12.7); Neutrophils % 69.6 % (38.7-73.9); Platelet Count 407 T/CUMM (130-400); Red Blood Count 3.24 MC/CUMM (3.8-5.5); Red Cell Distribution Width 17.2 % (9.3-17.3); White Blood Count 9.8 T/CUMM (4-12)
[2019-11-22 03:27] LABS: Calcium 8.4 MG/DL (8.5-10.1); Osmolality,Calculated 285.3 MOS/KG (273-304)
[2019-11-22 03:28] LABS: Troponin I 0.054 NG/ML (0.00-0.045)
[2019-11-22 03:43] LABS: Allen Test Positive; Pt O2 Delivery Device Ventilator
[2019-11-22 04:04] LABS: ABG HCO3 20.9 MMOL/L (20-26); ABG PCO2 34.4 MM HG (35-48); ABG PH 7.402 (7.35-7.45); ABG PO2 123.6 MM HG (80-95)
[2019-11-22 04:05] LABS: ABG Base Excess -3.4 MMOL/L (-2.5-2.5); ABG Oxygen Saturation 98.1 % (95-100)
[2019-11-22 05:08] LABS: Hypochromasia 1+
[2019-11-22 05:09] LABS: Microcytosis 1+; Ovalocytes Slight
[2019-11-22] MEDS: MULTIVITAMIN (PRENATAL) TABLET PO SCH (08:39)
[2019-11-22] MEDS: ASCORBIC ACID 500 MG TABLET PO SCH ×2 (08:39→21:00)
[2019-11-22] MEDS: SOTALOL 80 MG TABLET PO SCH ×2 (08:39→20:58)
[2019-11-22] MEDS: PANTOPRAZOLE 40 MG VIAL IV SCH ×2 (08:39→21:01)
[2019-11-22] MEDS: INSULIN LISPRO 100 UNIT/ML SUBCUT SCH ×4 (08:39→21:01)
[2019-11-22] MEDS ORDERED: SODIUM CHLORIDE 0.9% 1,000 ML IV PRN (09:18)
[2019-11-22] MEDS ORDERED: DILTIAZEM 60 MG TABLET PO ONE (09:30)
[2019-11-22] MEDS: POTASSIUM CHLORIDE 20 MEQ TABLET PO PRN ×2 (10:20→12:15)
[2019-11-22] MEDS: SODIUM CHLORIDE 0.9% 1,000 ML IV SCH (15:01)
[2019-11-22] MEDS: buPROPion XL 150 MG TABLET PO SCH (21:00)
[2019-11-23 03:52] LABS: ABG Base Excess -1.3 MMOL/L (-2.5-2.5); ABG HCO3 23.3 MMOL/L (20-26); ABG Oxygen Saturation 97.2 % (95-100); ABG PCO2 38.3 MM HG (35-48); ABG PH 7.394 (7.35-7.45); ABG PO2 85.9 MM HG (80-95); ABG TCO2 21.7 MMOL/L (23-27)
[2019-11-23] MEDS: MEROPENEM 500 MG in SODIUM CHLORIDE 0.9% 100 ML IV SCH ×3 (05:11→18:00)
[2019-11-23 06:08] LABS: Basophils # 0.1 10*3/uL (0.0-0.2); Basophils % 0.7 % (0.0-0.8); Eosinophils # 0.5 10*3/uL (0.0-0.87); Hematocrit 29.6 VOL% (42.0-52.0); Hemoglobin 8.7 GM/DL (14.0-18.0); Immature Granulocytes % 0.5 %; Immature Granulocytes Absolute 0.04 #; Lymphocytes # 1.4 10*3/uL (1.4-4.0); Lymphocytes % 16.7 % (21.2-54.2); Mean Corpuscular HGB Conc 29.4 GM/DL (32-36); Mean Platelet Volume 9.8 FL (9.6-12.0); Monocytes % 11.1 % (1.7-12.7); Platelet Count 391 T/CUMM (130-400); Red Blood Count 3.44 MC/CUMM (3.8-5.5); Red Cell Distribution Width 16.6 % (9.3-17.3); White Blood Count 8.2 T/CUMM (4-12)
[2019-11-23 06:33] LABS: Calcium 8.2 MG/DL (8.5-10.1); Osmolality,Calculated 282.1 MOS/KG (273-304)
[2019-11-23] MEDS ORDERED: DOCUSATE SODIUM 100 MG/10 ML UDCUP NG PRN (08:00)
[2019-11-23] MEDS: SOTALOL 80 MG TABLET PO SCH ×2 (08:45→21:03)
[2019-11-23] MEDS: buPROPion XL 150 MG TABLET PO SCH (08:45)
[2019-11-23] MEDS: ASCORBIC ACID 500 MG TABLET PO SCH ×2 (08:46→21:03)
[2019-11-23] MEDS ORDERED: MAGNESIUM SULF RIDER 2 GM in PREMIX 1 EACH IV ONE (08:48)
[2019-11-23] MEDS ORDERED: POTASSIUM CHLORIDE 20 MEQ TABLET PO ONE (08:48)
[2019-11-23] MEDS ORDERED: MULTIVITAMIN LIQUID (CENTRUM) 60 ML BOTTLE PER TUBE SCH (09:00)
[2019-11-23] MEDS: DILTIAZEM CD 120 MG CAPSULE PO SCH ×2 (09:11→21:03)
[2019-11-23] MEDS: INSULIN LISPRO 100 UNIT/ML SUBCUT SCH ×4 (09:18→21:03)
[2019-11-23] MEDS: POTASSIUM CHLORIDE 20 MEQ TABLET PO PRN (09:20)
[2019-11-23] MEDS: PANTOPRAZOLE 40 MG VIAL IV SCH (09:22)
[2019-11-23] MEDS: PANTOPRAZOLE 40 MG TABLET PO SCH ×2 (09:30→21:03)
[2019-11-23] MEDS ORDERED: DIGOXIN 0.125 MG TABLET PO ONE (09:56)
[2019-11-23] MEDS: DIGOXIN 0.125 MG TABLET PO SCH (12:36)
[2019-11-23] MEDS: MAGNESIUM SULF RIDER 2 GM in PREMIX 1 EACH IV PRN (13:00)
[2019-11-23] MEDS: SODIUM CHLORIDE 0.9% 1,000 ML IV SCH (15:34)
[2019-11-24] MEDS: MEROPENEM 500 MG in SODIUM CHLORIDE 0.9% 100 ML IV SCH ×4 (00:30→17:36)
[2019-11-24 04:54] LABS: Basophils # 0.1 10*3/uL (0.0-0.2); Basophils % 0.9 % (0.0-0.8); Eosinophils # 0.4 10*3/uL (0.0-0.87); Eosinophils % 5.5 % (0.00-10.9); Hematocrit 29.9 VOL% (42.0-52.0); Hemoglobin 8.9 GM/DL (14.0-18.0); Immature Granulocytes % 0.3 %; Immature Granulocytes Absolute 0.02 #; Lymphocytes # 1.3 10*3/uL (1.4-4.0); Lymphocytes % 16.4 % (21.2-54.2); Mean Corpuscular HGB Conc 29.8 GM/DL (32-36); Mean Corpuscular Volume 84.2 FL (87-102); Mean Platelet Volume 9.8 FL (9.6-12.0); Monocytes % 12.1 % (1.7-12.7); Neutrophils % 64.8 % (38.7-73.9); Platelet Count 393 T/CUMM (130-400); Red Blood Count 3.55 MC/CUMM (3.8-5.5); Red Cell Distribution Width 16.7 % (9.3-17.3); White Blood Count 7.6 T/CUMM (4-12)
[2019-11-24 05:22] LABS: Calcium 8.2 MG/DL (8.5-10.1); Osmolality,Calculated 280.3 MOS/KG (273-304)
[2019-11-24] MEDS: POTASSIUM CHLORIDE 20 MEQ TABLET PO PRN (05:59)
[2019-11-24] MEDS: MAGNESIUM SULF RIDER 2 GM in PREMIX 1 EACH IV PRN (06:15)
[2019-11-24] MEDS: MULTIVITAMIN (CENTRUM) TABLET PO SCH (08:11)
[2019-11-24] MEDS: buPROPion XL 150 MG TABLET PO SCH (08:11)
[2019-11-24] MEDS: ASCORBIC ACID 500 MG TABLET PO SCH ×2 (08:11→20:48)
[2019-11-24] MEDS: INSULIN LISPRO 100 UNIT/ML SUBCUT SCH ×4 (08:12→20:48)
[2019-11-24] MEDS: DILTIAZEM CD 120 MG CAPSULE PO SCH ×2 (08:12→20:47)
[2019-11-24] MEDS: FUROSEMIDE 40 MG/4 ML VIAL IV SCH (08:12)
[2019-11-24] MEDS: SOTALOL 80 MG TABLET PO SCH ×2 (08:12→20:47)
[2019-11-24] MEDS: PANTOPRAZOLE 40 MG TABLET PO SCH ×2 (08:17→20:48)
[2019-11-24] MEDS: APIXABAN 5 MG TABLET PO SCH ×2 (08:21→20:48)
[2019-11-24] MEDS: DIGOXIN 0.125 MG TABLET PO SCH (13:16)
[2019-11-24 13:32] LABS: Calcium 8.6 MG/DL (8.5-10.1); Osmolality,Calculated 273.8 MOS/KG (273-304)
[2019-11-25] MEDS: MEROPENEM 500 MG in SODIUM CHLORIDE 0.9% 100 ML IV SCH ×4 (00:04→17:12)
[2019-11-25 03:47] LABS: Basophils # 0.1 10*3/uL (0.0-0.2); Basophils % 0.9 % (0.0-0.8); Eosinophils # 0.3 10*3/uL (0.0-0.87); Eosinophils % 4.7 % (0.00-10.9); Hemoglobin 9.8 GM/DL (14.0-18.0); Immature Granulocytes % 0.3 %; Immature Granulocytes Absolute 0.02 #; Lymphocytes # 1.2 10*3/uL (1.4-4.0); Lymphocytes % 18.3 % (21.2-54.2); Mean Corpuscular HGB Conc 29.7 GM/DL (32-36); Mean Corpuscular Volume 83.1 FL (87-102); Mean Platelet Volume 9.9 FL (9.6-12.0); Monocytes % 10.7 % (1.7-12.7); Neutrophils % 65.1 % (38.7-73.9); Platelet Count 411 T/CUMM (130-400); Red Blood Count 3.97 MC/CUMM (3.8-5.5); Red Cell Distribution Width 16.5 % (9.3-17.3); White Blood Count 6.4 T/CUMM (4-12)
[2019-11-25 03:59] LABS: Calcium 8.6 MG/DL (8.5-10.1); Osmolality,Calculated 279.4 MOS/KG (273-304)
[2019-11-25] MEDS: POTASSIUM CHLORIDE 20 MEQ TABLET PO PRN ×2 (05:00→09:05)
[2019-11-25] MEDS: MAGNESIUM SULF RIDER 2 GM in PREMIX 1 EACH IV PRN (05:00)
[2019-11-25] MEDS: INSULIN LISPRO 100 UNIT/ML SUBCUT SCH ×4 (07:42→20:56)
[2019-11-25] MEDS: DILTIAZEM CD 120 MG CAPSULE PO SCH (08:01)
[2019-11-25] MEDS: SOTALOL 80 MG TABLET PO SCH ×2 (08:01→20:22)
[2019-11-25] MEDS: APIXABAN 5 MG TABLET PO SCH ×2 (08:02→20:22)
[2019-11-25] MEDS: PANTOPRAZOLE 40 MG TABLET PO SCH ×2 (08:02→20:22)
[2019-11-25] MEDS: ASCORBIC ACID 500 MG TABLET PO SCH ×2 (08:02→20:22)
[2019-11-25] MEDS: MULTIVITAMIN (CENTRUM) TABLET PO SCH (08:02)
[2019-11-25] MEDS: buPROPion XL 150 MG TABLET PO SCH (08:02)
[2019-11-25] MEDS: FUROSEMIDE 40 MG/4 ML VIAL IV SCH (08:51)
[2019-11-25] MEDS ORDERED: ETOMIDATE 40 MG/20 ML VIAL IV ONE (15:27)
[2019-11-25] MEDS ORDERED: LIDOCAINE 2% 5 ML VIAL ONE (15:27)
[2019-11-25] MEDS ORDERED: propofoL 200 MG/20 ML VIAL IV ONE (15:27)
[2019-11-25 16:00] VITALS: BP 124/82
[2019-11-25] MEDS ORDERED: DEXTROSE 50% 25 GM/50 ML VIAL IV PRN (18:01)
[2019-11-25] MEDS ORDERED: GLUCAGON 1 MG VIAL IM PRN (18:01)
[2019-11-26] MEDS: MEROPENEM 500 MG in SODIUM CHLORIDE 0.9% 100 ML IV SCH ×2 (00:16→05:31)
[2019-11-26 03:39] LABS: Calcium 8.3 MG/DL (8.5-10.1); Osmolality,Calculated 277.5 MOS/KG (273-304)
[2019-11-26 03:43] LABS: Albumin 2.4 G/DL (3.4-5.0); Bilirubin,Direct 0.16 MG/DL (0.0-0.20); Bilirubin,Indirect 0.5 MG/DL (0.0-1.0); Bilirubin,Total 0.7 MG/DL (0.2-1.0); Total Protein 6.1 G/DL (6.4-8.3)
[2019-11-26 03:47] LABS: Basophils # 0.1 10*3/uL (0.0-0.2); Basophils % 0.9 % (0.0-0.8); Eosinophils # 0.3 10*3/uL (0.0-0.87); Eosinophils % 5.1 % (0.00-10.9); Hematocrit 29.5 VOL% (42.0-52.0); Hemoglobin 8.7 GM/DL (14.0-18.0); Immature Granulocytes % 0.2 %; Immature Granulocytes Absolute 0.01 #; Lymphocytes # 1.2 10*3/uL (1.4-4.0); Mean Corpuscular HGB Conc 29.5 GM/DL (32-36); Mean Corpuscular Volume 83.6 FL (87-102); Mean Platelet Volume 9.8 FL (9.6-12.0); Neutrophils % 60.8 % (38.7-73.9); Platelet Count 373 T/CUMM (130-400); Red Blood Count 3.53 MC/CUMM (3.8-5.5); Red Cell Distribution Width 16.8 % (9.3-17.3); White Blood Count 5.9 T/CUMM (4-12)
[2019-11-26] MEDS: POTASSIUM CHLORIDE 20 MEQ TABLET PO PRN (05:31)
[2019-11-26] MEDS: INSULIN LISPRO 100 UNIT/ML SUBCUT SCH ×4 (08:27→20:52)
[2019-11-26] MEDS: FUROSEMIDE 40 MG TABLET PO SCH (09:05)
[2019-11-26] MEDS: ASCORBIC ACID 500 MG TABLET PO SCH ×2 (09:05→20:51)
[2019-11-26] MEDS: SOTALOL 80 MG TABLET PO SCH ×2 (09:05→20:51)
[2019-11-26] MEDS: MULTIVITAMIN (CENTRUM) TABLET PO SCH (09:05)
[2019-11-26] MEDS: APIXABAN 5 MG TABLET PO SCH ×2 (09:05→20:51)
[2019-11-26] MEDS: PANTOPRAZOLE 40 MG TABLET PO SCH ×2 (09:05→20:51)
[2019-11-26] MEDS: buPROPion XL 150 MG TABLET PO SCH (09:06)
[2019-11-26] MEDS ORDERED: ROSUVASTATIN 20 MG TABLET PO SCH (21:00)
[2019-11-27 03:14] LABS: Basophils # 0.1 10*3/uL (0.0-0.2); Eosinophils # 0.3 10*3/uL (0.0-0.87); Eosinophils % 3.9 % (0.00-10.9); Hematocrit 30.4 VOL% (42.0-52.0); Hemoglobin 8.9 GM/DL (14.0-18.0); Immature Granulocytes % 0.4 %; Immature Granulocytes Absolute 0.03 #; Lymphocytes # 1.5 10*3/uL (1.4-4.0); Lymphocytes % 17.6 % (21.2-54.2); Mean Corpuscular HGB Conc 29.3 GM/DL (32-36); Mean Corpuscular Volume 83.5 FL (87-102); Mean Platelet Volume 9.7 FL (9.6-12.0); Monocytes % 11.5 % (1.7-12.7); Neutrophils % 65.6 % (38.7-73.9); Platelet Count 385 T/CUMM (130-400); Red Blood Count 3.64 MC/CUMM (3.8-5.5); Red Cell Distribution Width 16.7 % (9.3-17.3); White Blood Count 8.2 T/CUMM (4-12)
[2019-11-27 03:33] LABS: Calcium 8.5 MG/DL (8.5-10.1); Osmolality,Calculated 274.7 MOS/KG (273-304)
[2019-11-27] MEDS: POTASSIUM CHLORIDE 20 MEQ TABLET PO PRN ×3 (05:17→09:28)
[2019-11-27] MEDS: INSULIN LISPRO 100 UNIT/ML SUBCUT SCH (08:22)
[2019-11-27] MEDS: buPROPion XL 150 MG TABLET PO SCH (08:28)
[2019-11-27] MEDS: APIXABAN 5 MG TABLET PO SCH (08:28)
[2019-11-27] MEDS: PANTOPRAZOLE 40 MG TABLET PO SCH (08:29)
[2019-11-27] MEDS: SOTALOL 80 MG TABLET PO SCH (08:29)
[2019-11-27] MEDS: FUROSEMIDE 40 MG TABLET PO SCH (08:29)
[2019-11-27] MEDS: ASCORBIC ACID 500 MG TABLET PO SCH (08:29)
[2019-11-27] MEDS: MULTIVITAMIN (CENTRUM) TABLET PO SCH (08:29)
[2019-11-27] MEDS ORDERED: LOSARTAN 25 MG TABLET PO SCH (09:00)
== END 2019-11-27 11:50 | disposition home or self-care (01) | DRG 308 ==
LOC: N.GILAB 10:12 → N.TELES 10:12 → SUATTDRO 11-19 15:24 → N.ICU 11-20 14:59
PROVIDERS: ADMIT Family Medicine; ATTEND Family Medicine

== ENCOUNTER 2021-07-31 18:00 | Inpatient (IN) ==
[2021-07-31 18:43] LABS: INR 1.2; PT Patient Result 12.9 SECS (10.5-12.0); Partial Thromboplastin Time 30.5 SECS (23.8-32.1)
[2021-07-31 18:50] LABS: Albumin 3.4 G/DL (3.4-5.0); Bilirubin,Total 0.7 MG/DL (0.20-1.00); Calcium 9.2 MG/DL (8.5-10.1); Osmolality,Calculated 281.4 MOS/KG (273-304); Potassium 3.8 MMOL/L (3.5-5.1)
[2021-07-31 18:55] LABS: Basophils # 0.1 10*3/uL (0.0-0.2); Basophils % 0.6 % (0.0-0.8); Eosinophils # 0.3 10*3/uL (0.0-0.87); Eosinophils % 2.6 % (0.00-10.9); Immature Granulocytes % 0.6 %; Immature Granulocytes Absolute 0.08 #; Lymphocytes # 1.6 10*3/uL (1.4-4.0); Mean Corpuscular HGB Conc 26.4 GM/DL (32-36); Mean Corpuscular Volume 73.6 FL (87-102); Monocytes % 8.2 % (1.7-12.7); NRBC # 0.08 10*3/uL; Platelet Count 477 T/CUMM (130-400); Red Blood Count 2.99 MC/CUMM (3.8-5.5); Red Cell Distribution Width 18.6 % (9.3-17.3); White Blood Count 13.3 T/CUMM (4-12)
[2021-07-31 18:57] LABS: Hemoglobin 5.8 GM/DL (14.0-18.0)
[2021-07-31] MEDS ORDERED: SODIUM CHLORIDE 0.9% 1,000 ML IV PRN (19:03)
[2021-07-31 19:13] LABS: Eosinophils 5 % (0-10); Lymphocytes 8 % (20-55); Nucleated Red Blood Cells 1 (0-5); Segmented Neutrophils 81 % (50-85); Total Cells Counted 100
[2021-07-31 19:14] LABS: Elliptocytes Few; Schistocytes Few; Target Cells Few
[2021-07-31 19:15] LABS: Hypochromia 1+; Platelet Estimate Increased
[2021-07-31 19:16] LABS: Anisocytosis 1+
[2021-07-31] MEDS ORDERED: ONDANSETRON 4 MG/2 ML VIAL IV PRN (20:08)
[2021-07-31] MEDS ORDERED: GLUCAGON 1 MG VIAL IM PRN (20:08)
[2021-07-31] MEDS ORDERED: MORPHINE 2 MG/1 ML SYRINGE IV PRN (20:08)
[2021-07-31] MEDS ORDERED: ACETAMINOPHEN 325 MG TABLET PO PRN (20:08)
[2021-07-31] MEDS ORDERED: DEXTROSE 10% 250 ML BAG IV PRN (20:12)
[2021-07-31] MEDS: SODIUM CHLORIDE 0.9% 1,000 ML IV SCH (21:50)
[2021-07-31] MEDS: DOCUSATE SODIUM 100 MG CAPSULE PO SCH (21:52)
[2021-08-01] MEDS ORDERED: FUROSEMIDE 20 MG/2 ML VIAL IV STA (02:32)
[2021-08-01] MEDS ORDERED: FUROSEMIDE 40 MG/4 ML VIAL ONE (02:34)
[2021-08-01] MEDS ORDERED: FUROSEMIDE 40 MG/4 ML VIAL IV STA (02:36)
[2021-08-01] MEDS: INSULIN REGULAR 100 UNIT/ML SUBCUT SCH ×5 (02:40→23:52)
[2021-08-01 05:48] LABS: Albumin 3.3 G/DL (3.4-5.0); Bilirubin,Total 1.7 MG/DL (0.20-1.00); Calcium 9.2 MG/DL (8.5-10.1); Osmolality,Calculated 281.3 MOS/KG (273-304); Potassium 3.5 MMOL/L (3.5-5.1); Total Protein 7.5 G/DL (6.4-8.2)
[2021-08-01 06:11] LABS: Basophils # 0.1 10*3/uL (0.0-0.2); Basophils % 0.8 % (0.0-0.8); Eosinophils # 0.3 10*3/uL (0.0-0.87); Eosinophils % 2.7 % (0.00-10.9); Hemoglobin 8.2 GM/DL (14.0-18.0); Immature Granulocytes % 0.5 %; Immature Granulocytes Absolute 0.05 #; Lymphocytes # 1.6 10*3/uL (1.4-4.0); Lymphocytes % 14.6 % (21.2-54.2); Mean Corpuscular HGB Conc 27.9 GM/DL (32-36); Mean Corpuscular Volume 76.4 FL (87-102); Mean Platelet Volume 11.1 FL (9.6-12.0); Monocytes % 7.5 % (1.7-12.7); NRBC # 0.07 10*3/uL; Neutrophils % 73.9 % (38.7-73.9); Platelet Count 425 T/CUMM (130-400); Red Blood Count 3.85 MC/CUMM (3.8-5.5); Red Cell Distribution Width 19.3 % (9.3-17.3); White Blood Count 10.7 T/CUMM (4-12)
[2021-08-01 07:01] LABS: Hematocrit 29.4 VOL% (42.0-52.0)
[2021-08-01] MEDS: buPROPion SR 150 MG TABLET PO SCH (09:00)
[2021-08-01] MEDS: DOCUSATE SODIUM 100 MG CAPSULE PO SCH ×2 (09:09→21:34)
[2021-08-01] MEDS: ROSUVASTATIN 10 MG TABLET PO SCH (09:09)
[2021-08-01] MEDS: POTASSIUM CHLORIDE 20 MEQ TABLET PO SCH (09:09)
[2021-08-01] MEDS: MAGNESIUM CHLORIDE 64 MG TABLET PO SCH (09:09)
[2021-08-01] MEDS: SODIUM CHLORIDE 0.9% 1,000 ML IV SCH ×2 (09:11→23:51)
[2021-08-01] MEDS: PANTOPRAZOLE 40 MG VIAL IV SCH (09:12)
[2021-08-01 16:35] LABS: Basophils # 0.1 10*3/uL (0.0-0.2); Basophils % 0.8 % (0.0-0.8); Eosinophils # 0.3 10*3/uL (0.0-0.87); Eosinophils % 3.2 % (0.00-10.9); Hematocrit 29.7 VOL% (42.0-52.0); Hemoglobin 8.4 GM/DL (14.0-18.0); Immature Granulocytes % 0.5 %; Immature Granulocytes Absolute 0.05 #; Lymphocytes # 1.7 10*3/uL (1.4-4.0); Lymphocytes % 16.8 % (21.2-54.2); Mean Corpuscular HGB Conc 28.3 GM/DL (32-36); Mean Corpuscular Volume 76.3 FL (87-102); Mean Platelet Volume 10.8 FL (9.6-12.0); Monocytes % 9.5 % (1.7-12.7); NRBC # 0.08 10*3/uL; Neutrophils % 69.2 % (38.7-73.9); Platelet Count 435 T/CUMM (130-400); Red Blood Count 3.89 MC/CUMM (3.8-5.5); Red Cell Distribution Width 19.2 % (9.3-17.3); White Blood Count 10.3 T/CUMM (4-12)
[2021-08-01] MEDS: SOTALOL 80 MG TABLET PO SCH (21:34)
[2021-08-02 06:05] LABS: Basophils # 0.1 10*3/uL (0.0-0.2); Basophils % 0.7 % (0.0-0.8); Eosinophils # 0.4 10*3/uL (0.0-0.87); Eosinophils % 3.6 % (0.00-10.9); Hemoglobin 7.6 GM/DL (14.0-18.0); Immature Granulocytes % 0.6 %; Immature Granulocytes Absolute 0.06 #; Lymphocytes # 1.5 10*3/uL (1.4-4.0); Lymphocytes % 13.8 % (21.2-54.2); Mean Corpuscular Volume 76.6 FL (87-102); Mean Platelet Volume 11.1 FL (9.6-12.0); Monocytes % 8.9 % (1.7-12.7); NRBC # 0.05 10*3/uL; Neutrophils % 72.4 % (38.7-73.9); Platelet Count 446 T/CUMM (130-400); Red Blood Count 3.54 MC/CUMM (3.8-5.5); Red Cell Distribution Width 19.1 % (9.3-17.3); White Blood Count 10.7 T/CUMM (4-12)
[2021-08-02 06:06] LABS: Hematocrit 27.1 VOL% (42.0-52.0)
[2021-08-02] MEDS: INSULIN REGULAR 100 UNIT/ML SUBCUT SCH ×3 (06:11→17:13)
[2021-08-02 06:52] LABS: Calcium 8.4 MG/DL (8.5-10.1); Osmolality,Calculated 282.3 MOS/KG (273-304); Potassium 3.6 MMOL/L (3.5-5.1)
[2021-08-02] MEDS: POTASSIUM CHLORIDE 20 MEQ TABLET PO SCH (09:47)
[2021-08-02] MEDS: SOTALOL 80 MG TABLET PO SCH ×2 (09:47→20:34)
[2021-08-02] MEDS: ROSUVASTATIN 10 MG TABLET PO SCH (09:48)
[2021-08-02] MEDS: DOCUSATE SODIUM 100 MG CAPSULE PO SCH ×2 (09:48→20:34)
[2021-08-02] MEDS: buPROPion SR 150 MG TABLET PO SCH (09:48)
[2021-08-02] MEDS: MAGNESIUM CHLORIDE 64 MG TABLET PO SCH (09:48)
[2021-08-02] MEDS: PANTOPRAZOLE 40 MG VIAL IV SCH (09:52)
[2021-08-02] MEDS: SODIUM CHLORIDE 0.9% 1,000 ML IV SCH (12:59)
[2021-08-03] MEDS: INSULIN REGULAR 100 UNIT/ML SUBCUT SCH ×3 (00:09→12:03)
[2021-08-03 05:21] LABS: Calcium 8.8 MG/DL (8.5-10.1); Osmolality,Calculated 281.4 MOS/KG (273-304); Potassium 3.7 MMOL/L (3.5-5.1)
[2021-08-03 05:58] LABS: Basophils # 0.1 10*3/uL (0.0-0.2); Basophils % 0.8 % (0.0-0.8); Eosinophils # 0.6 10*3/uL (0.0-0.87); Eosinophils % 5.6 % (0.00-10.9); Hematocrit 26.9 VOL% (42.0-52.0); Hemoglobin 7.7 GM/DL (14.0-18.0); Immature Granulocytes % 0.7 %; Immature Granulocytes Absolute 0.07 #; Lymphocytes # 1.5 10*3/uL (1.4-4.0); Lymphocytes % 15.1 % (21.2-54.2); Mean Corpuscular HGB Conc 28.6 GM/DL (32-36); Mean Corpuscular Volume 76.6 FL (87-102); Mean Platelet Volume 11.2 FL (9.6-12.0); Monocytes % 11.3 % (1.7-12.7); Neutrophils % 66.5 % (38.7-73.9); Platelet Count 442 T/CUMM (130-400); Red Blood Count 3.51 MC/CUMM (3.8-5.5); Red Cell Distribution Width 19.9 % (9.3-17.3); White Blood Count 10.1 T/CUMM (4-12)
[2021-08-03 06:13] LABS: Acanthocytes Few; Anisocytosis 1+; Hypochromia 1+; Microcytosis 1+; Ovalocytes Few; Platelet Estimate Increased
[2021-08-03] MEDS ORDERED: LACTATED RINGERS 1,000 ML IV SCH (08:00)
[2021-08-03] MEDS: PANTOPRAZOLE 40 MG VIAL IV SCH (11:23)
[2021-08-03] MEDS ORDERED: ETOMIDATE 20 MG/10 ML VIAL IV ONE (14:08)
[2021-08-03] MEDS ORDERED: propofoL 200 MG/20 ML VIAL IV ONE (14:08)
[2021-08-03] MEDS ORDERED: LIDOCAINE 2% 5 ML VIAL ONE (14:08)
[2021-08-03] MEDS: SOTALOL 80 MG TABLET PO SCH (14:09)
[2021-08-03] MEDS: DOCUSATE SODIUM 100 MG CAPSULE PO SCH (14:09)
[2021-08-03] MEDS: MAGNESIUM CHLORIDE 64 MG TABLET PO SCH (14:10)
[2021-08-03] MEDS: buPROPion SR 150 MG TABLET PO SCH (14:10)
[2021-08-03] MEDS: POTASSIUM CHLORIDE 20 MEQ TABLET PO SCH (14:10)
[2021-08-03] MEDS: ROSUVASTATIN 10 MG TABLET PO SCH (14:10)
[2021-08-03] MEDS ORDERED: DEXTROSE 50% 25 GM/50 ML VIAL IV PRN (14:33)
[2021-08-03] MEDS ORDERED: GLUCAGON 1 MG VIAL IM PRN (14:33)
[2021-08-03 17:41] VITALS: BP 171/69
== END 2021-08-03 17:55 | disposition home or self-care (01) | DRG 378 ==
LOC: EDBD → EDUNIT# → N.ED 18:00 → N.EDINP 19:59 → N.TELEN 08-01 15:08
PROVIDERS: ADMIT Family Medicine; ATTEND Family Medicine